=== PATIENT | female | born 1930 | race Caucasian/White ===

== ENCOUNTER 2017-08-22 00:46 | Inpatient (IN) | payer MEDICARE, OTHER ==
[~2017-08-22] VITALS: Ht 170.2 cm; Wt 70.0 kg
[~2017-08-22 00:46] MED LIST: ACTONEL35 MG PO; ASPIRIN EC81 MG PO; ASPIRIN LOW DOS81 M2 PO; ASPIRIN325 MG PO; ATELVIA PO; BISOPRL/HC5 MG/6.25 PO; BISOPRL/HCTZ PO; BISOPROL FUM5 MG PO; BP MED; CALCIUM 600 + M1 TAB PO; CEPHALEXIN500 MG OR; CEPHALEXIN500 MG PO; CLOPIDOGREL75 MG PO; CORDARONE/200 MG/TAB PO; CRESTOR10 MG OR; DIGITEK0.25 M1 PO; FEMARA2.5 MG OR; FLEET ENEMA RE; FOSAMAX PLUS PO; HYDROCHLOROT12.5 MG PO; K-DUR/KLOR-CON20 MEQ PO; KLOR-CON M2020 MEQ PO; LASIX40 MG PO; LORTAB 7.57.5 MG PO; LORTAB5 PO; MAG CITRATE PO; MEDDOSEPAK PO; MIRALAX3350 N1 PO; MUPIROCIN2 % EX; NORCO1 TA1 PO; ONDANSETRON4 MG PO; PLAVIX75 MG PO; ULTRAM50 MG OR; WARFARIN2.5 MG PO; [UNRECOGNIZED DRUG - OTHER] OR
--- NOTE | 2017-08-22 00:49 | NUR ---
PT. TO ROOM 10 VIA EMS RESTRAINED ON A BACK BOARD WITH C/O DAUGHTER THAT SHE FOUND HER MOM ON THE FLOOR IN A POOL OF VOMIT. PT. IS AWAKE AND ALERT BUT NON-VERBAL. MOUTH IS FULL OF VOMIT. LARGE BRUISE NOTED TO RIGHT SHOULDER RIGHT HIP AND RIGHT KNNE. PT. DAUGHTER STATES THE LAST TIME SHE CHECKED ON HER MOM WAS 1000 ON 08/21/17 EVEN THOUGH THEY LIVE IN THE SAME HOUSE. PT. WAS NOTED MOVING HER RIGHT FOOT. MD AT BEDSIDE.
[2017-08-22 01:07] LABS: HEMATOCRIT 53.1 % (37.0-47.0); HEMOGLOBIN 17.8 g/dl (12.0-16.0); IMMATURE GRANULOCYTES 0.5 % (0.0-1.0); MEAN CELL VOLUME 91.1 fL CALC (80.0-100.0); MEAN CORPUSCULAR HGB 30.5 pG CALC (26.0-32.0); MEAN CORPUSCULAR HGB CONC 33.5 g/L CALC (32.0-36.0); NEUT# 17.05 thou/uL (2.00-7.15); RED BLOOD COUNT 5.83 mill/uL (4.20-5.60); RED CELL DISTRI WIDTH 13.9 % (11.5-15.5)
[2017-08-22] MEDS ORDERED: K-DUR/KLOR-CON20 MEQ PO (01:17)
[2017-08-22] MEDS ORDERED: PLAVIX75 MG PO (01:19)
[2017-08-22 01:24] LABS: URINE BLOOD DIPSTICK TRACE-LYSED (NEGATIVE); URINE COLOR YELLOW; URINE GLUCOSE - DIPSTICK NEGATIVE (NEGATIVE); URINE KETONE 15 mg/dL (NEGATIVE); URINE LEUK ESTERASE NEGATIVE (NEGATIVE); URINE NITRITE - DIPSTICK NEGATIVE (Negative); URINE PH 5.5 (4.5-8.0); URINE PROTEIN - DIPSTICK TRACE mg/dL (NEG-TRACE); URINE SPECIFIC GRAVITY 1.025; URINE UROBILINOGEN - DIPSTICK 0.2 E.U./dL (0.2)
[2017-08-22 01:25] LABS: URINE CLARITY SL CLOUDY
[2017-08-22 01:26] LABS: URINE BILIRUBIN - DIPSTICK NEGATIVE (NEGATIVE)
--- NOTE | 2017-08-22 01:51 | NUR ---
ivf and iv cardizem given as per md order.
--- NOTE | 2017-08-22 02:26 | NUR ---
IN ROOM TO DISCUSS CLINICAL FINDINGS WITH PT. DAUGHTER, VERBALIZED UNDERSTANDING.
[2017-08-22 02:32] LABS: INTERNATIONAL NORMALIZED RATIO 1.1 RATIO (0.7-1.3); PROTHROMBIN TIME 12.7 SECONDS (9.0-12.5)
[2017-08-22 02:33] LABS: ALBUMIN 4.5 g/dL (3.2-5.0); ALKALINE PHOSPHATASE 106 u/l (38-126); ANION GAP 18 (6-22 (CALC)); BUN 24 mg/dL (8-23); BUN/CREATININE RATIO 29 (12-20 (CALC)); CARBON DIOXIDE 23 mmol/l (22-30); CHLORIDE 109 mmol/l (95-108); CREATININE 0.8 mg/dL (0.5-1.0); GFR > 60 ML/MIN (>=60 (CALC)); GFR FOR AFR.AMER. > 60 ML/MIN (>=60 (CALC)); GLUCOSE 167 mg/dL (82-115); POTASSIUM 3.8 mmol/l (3.5-5.1); SGOT/AST 73 u/l (9-36); SGPT/ALT 34 u/l (11-66); SODIUM 146 mmol/l (137-146); TOTAL PROTEIN 8.1 g/dL (6.3-8.2)
[2017-08-22 02:59] LABS: MYOGLOBIN 2109 ng/mL (0 - 62)
--- NOTE | 2017-08-22 03:19 | NUR ---
CHRISTINE CATH EMPTIED FOR 800 ML DK. GOOD URINE.
--- NOTE | 2017-08-22 03:25 | NUR ---
MOUTH CARE GIVEN.
--- NOTE | 2017-08-22 03:50 | NUR ---
Admission Note Report Given to: ANNAMARIA DAVIS Transported by: Wheelchair X Stretcher Transported with: X Nurse Transporter X Patent IV X O2 X Business Objects Report Developer
--- NOTE | 2017-08-22 03:52 | NUR ---
PT TRANSFERRED TO FLOOR VIA STRETCHER ACCOMPANIED BY JUSTIN GARCIA;PT POSITIONED IN BED WITH 3 PERSON LIFT;VS AND WT OBTAINED;PT AWAKE AND OPENS EYES TO VERBAL STIMULI BUT NON-VERBAL AT THIS TIME;MULTIPLE ABRASIONS AND BRUISES TO RIGHT HIP,KNEE,ELBOW, AND SHOULDER;PHOTOGRAPHS TAKEN AND PLACED IN CHART;DRIED EMESIS NOTED THROUGHOUT BODY AND HAIR,BED BATH AND ORAL CARE PROVIDED;RESPIRATIONS SHALLOW BUT EVEN ON OXYGEN @ 2L VIA NC;CLEAR LUNG SOUNDS NOTED;TELE MONITOR IN PLACE;#20G TO RIGHT WRIST INFUSING D5 LR @90ML/HR,SITE APPEARS HEALTHY AND FREE FROM EDEMA;PERRLA,LEFT EYE DROOP PRESENT;PT DOES NOT RESPOND TO VERBAL QUES; LIMB ALERT BAND PLACED ON LEFT ARM FOR HX OF L/MASTECTOMY;CHRISTINE CATHETER PATENT AND DRAINING YELLOW/COUDY URINE,LEG STRAP IN PLACE;ALL SAFETY PRECAUTIONS REINFORCED;CALL LIGHT WITHIN REACH;WILL CONTINUE TO MONITOR CLOSELY
[2017-08-22 04:00] VITALS: BP 134/74
--- NOTE | 2017-08-22 04:00 | NUR ---
PT. TAKEN TO MD FLOOR VIA STRETCHER.
--- NOTE | 2017-08-22 05:16 | NUR ---
DAUGHTER AT BEDSIDE;DAUGHTER REPORTS THAT YESTERDAY, 08/21/17, PT WAS ALERT,ORIENTED AND AMBULATING WITH EASE AND AFTER SEVERAL HOURS OF BEING LEFT HOME ALONE SHE WAS FOUND ON THE FLOOR;ALL HOME MEDICATIONS AND BELONGINGS SENT HOME AT THIS TIME;BASED ON THE NESS-VERGARA FACE PAIN SCALE PAIN LEVEL APPEARS TO BE A 6/10;DAUGHTER ALSO REQUESTS PT BE MEDICATED FOR PAIN;PT MEDICATED WITH 2MG OF MORPHINE IVP;WILL CONTINUE TO MONITOR
[2017-08-22 08:20] VITALS: BP 130/72
--- NOTE | 2017-08-22 08:20 | NUR ---
ASSESSMENT IS COMPLETED: PT IS AWAKE AND NOT VERBALIZING WELL. IV SITE IS FREE FROM REDNESS OR EDEMA. ENCOURAGING PT TO EAT BREAKFAST. PT HAS A TELE MONITOR IN PLACE. FAMILY IN THE ROOM. CONTINUE TO OBSERVE AND MONITOR.
[2017-08-22 11:17] VITALS: BP 132/57
--- NOTE | 2017-08-22 12:00 | NUR ---
IV SITE IS FREE FROM REDNESS OR EDEMA. CHRISTINE DRAINING GOOD URINE., NO DISTRESS NOTED. CONITNUE TO OSBERVE AND MONITOR.,
[2017-08-22 15:35] VITALS: BP 146/83
--- NOTE | 2017-08-22 16:00 | NUR ---
PT IS RESTING IN BED WITH NO DISTRESS NOTED. IV SITE IS FREE FROM REDNESS OR EDEMA. FAMILY HAS BEEN IN AND OUT.
[2017-08-22 19:15] VITALS: BP 110/80
--- NOTE | 2017-08-22 19:34 | NUR ---
HOSPICE HAS BEEN CALLED AND WILL COME AND ASSESS PT.
--- NOTE | 2017-08-22 20:00 | NUR ---
PT RESTING IN BED WITH FAMILY AT BEDSIDE;PT AWAKE BUT NON-VERBAL;UNABLE TO FOLLOW ANY COMMANDES AT THIS TIME;MORPHINE 2MG IVP ADMINISTERED PER FAMILY REQUEST;RESPIRATIONS EVEN BUT SHALLOW WITH O2 ON @ 2L;CHRISTINE CATHETER PATENT DRAINING GOOD/CLOUDY URINE,LEG STRAP IN PLACE;#20G TO RIGHT WRIST INFUSING D5 LR @ 90ML/HR,SITE APPEARS HEALTHY;MULTIPLE ABRASIONS AND BRUISES TO RIGHT SIDE;MINIMAL ORAL SECREATIONS NOTED;PT RE-POSITIONED FOR COMFORT;SAFETY PRECAUTIONS REINFORCED WITH PT AND FAMILY;PILLOWS AND BLANKETS PROVIDED FOR ITALOSHAYLAAUGUSTAKYARA WHO WILL BE SPENDING THE NIGHT AT PTS SIDE;FALL PRECAUTIONS IN PLACE;WILL CONTINUE TO MONITOR
--- NOTE | 2017-08-22 23:59 | NUR ---
PT APPEARS TO BE SLEEPING IN SEMI FOWLERS POSITION;NO S/S OF DISTRESS NOTED;RESPIRATIONS SHALLOW BUT EVEN ON OXYGEN @ 2L;IV FLUIDS INFUSING WELL TO RIGHT WRIST;ASSESSMENT REMAINS UNCHANGED;FALL PRECAUTIONS IN PLACE WITH BED IN THE LOWEST POSITION;WILL CONTINUE TO MONITOR
[2017-08-23] VITALS (7 sets, daily range): BP systolic 104–156; BP diastolic 67–84
--- NOTE | 2017-08-23 03:50 | NUR ---
PT DAUGHTER CALLED FOR AN UPDATE ON CONDITION
--- NOTE | 2017-08-23 04:30 | NUR ---
PT SLEEPING IN SEMI FOWLERS POSITION;VS OBTAINED;RESPIRATIONS EVEN AND UNLABORED,SHALLOW ON 02 @ 2L VIA NC;PT NON-VERBAL,AWAKENS TO TOUCH;PO FLUIDS ENCOURAGED;IV FLUIDS INFUSING WELL TO RIGHT WRIST;CHRISTINE CATHETER PATENT,EMPTIED OF 300CC OF GOOD/CLEAR URINE;FALL PRECAUTIONS IN PLACE;WILL CONTINUE TO MONITOR CLOSELY
--- NOTE | 2017-08-23 05:35 | NUR ---
PT RESTING IN BED WITH EYES OPENED GRABBING AT RIGHT SHOULDER;PT MEDICATED WITH PRN MORPHINE 2MG IVP FOR COMFORT;WILL CONTINUE TO MONITOR FOR EFFECT
--- NOTE | 2017-08-23 07:50 | NUR ---
PT IS AWAKE HAVING GARBLED SPEECH. IV SITE IS FREE FROM REDNESS OR EDEMA. ASSESSMENT IS COMPLETED: CONTINUE TO OBSERVE AND MONITOR.
--- NOTE | 2017-08-23 08:24 | NUR ---
SPOKE WITH KULDEEP RN AT HOSPICE WILL SEND A NURSE OUT TO SEE HER TODAY,
--- NOTE | 2017-08-23 08:57 | NUR ---
Received report from Gabriele Giron RN. Pt. assessment completed. Pt. asleep in semi-fowlers position when I entered the room. Pt. is non-verbal, responsive to voice/touch. No S/S of distress. Pupils reactive to light 3mm. Facial structure is symmetrical. Oral mucous membranes are dry with some sediment noted towards back of mouth - swabbed mouth with toothette and gave water to drink. Respirations are even/unlabored, pt. is on O2/NC 2L. Heart rhythm/sounds irregular/abnormal I/R to dx of AFIB, tele device was DC'd per Physician orders. Pt. exhibits fair strength in upper extremities, weakness in lower extremities. Abdomen is distended/soft with hypoactive bowel sounds. Pt. receiving IV fluids in right wrist, IV site free from edema/redness. Skin is acyanotic, warm/dry, poor skin turgor/tenting. No edema noted. Bruising/abrasions appear to be healing well, no S/S of infection. Emmanuel catheter in place and draining appropriately to BSDB. Bed is in lowest position, side rails up, wheels locked, call light within reach.
--- NOTE | 2017-08-23 10:30 | NUR ---
KULDEEP FROM HOSPICE CALLED AND HAS BEEN TRYING TO GET IN TOUCH WITH PT'S DAUGHTER.. DAUGHTER CALLED AND INFORMED OF HOSPICE AND GAVE PHONE NUMBER , THEY CALLED BACK AT [phone] AND HAS AN APPOINTMENT FOR THE DAUGHTER AND HOSPICE NURSE TO MEET INBETWEEN [phone] AND 1400.
--- NOTE | 2017-08-23 12:00 | NUR ---
PT IS TRYING TO FEED HERSELF. CLEANED HER AND THEN ASSISTED THE REST OF THE LUNCH. IV SITE IS FREE FROM REDNESS OR EDEMA.
--- NOTE | 2017-08-23 12:00 | NUR ---
PT HAS BEEN RESTING IN BED WITH NO DISTRESS NOTED. CONTINUE TO OSBERVE AND MONITOR.
--- NOTE | 2017-08-23 13:53 | NUR ---
SPOKE WITH GRANDSON AND INFORMED OF THE PLAN FOR HOSPICE NURSE AND HIS MOTHER TO SPEAK THIS AFTERNOON VERBALIZED UNDERSTANDING,
--- NOTE | 2017-08-23 14:15 | NUR ---
HOSPICE IN TO SPEAK WITH FAMILY AT THIS TIME
--- NOTE | 2017-08-23 16:00 | NUR ---
PT IS RESTING IN BED FAMILY HAS BEEN IN THE ROOM. NO DISTRESS NTOED. CONITNUE TO OBSERVE AND MONITOR.
--- NOTE | 2017-08-24 02:38 | NUR ---
PATIENT GIVEN COMPLETE BED BATH AND LINENS WERE CHANGED. PATIENT WITH EXPRESSIVE APHASIA AND GARBLED SPEECH. ATTEMPTS TO SPEAK BUT MOST OF THE TIME HER SPEECH IS GARBLED. PATIENT OFFERED PO FLUIDS AND WAS ABLE TO TAKE WITH STRAW-TOLERATED WELL. CHRISTINE CATH PATENT AND DRAINING GOOD URINE. CHRISTINE CATH CARE DONE. PATIENT MEDICATED WITH ATIVAN 1MG FOR PATIENT COMFORT. ORAL HYGEINE GIVEN. CALL LIGHT IN REACH. WILL CONT TO MONITOR.
[2017-08-24 04:15] VITALS: BP 112/70
--- NOTE | 2017-08-24 06:30 | NUR ---
APPEARS SLEEPING AT THIS TIME WITH EYES CLOSED. IVF PATENT AND INFUSING AT 90CC/HR. CHRISTINE PATENT AND DRAINING GOOD URINE. CALL LIGHT IN REACH. WILL CONT TO MONITOR.
--- NOTE | 2017-08-24 07:00 | NUR ---
RECEIVED BEDSIDE REPORT FROM FLORENCIO ANDERSON. RESTING IN HIGH FOWLERS WITH EYES CLOSED, AWAKENS EASILY. RESPS EVEN AND UNLABORED ON ROOM AIR. #20 LW INFUSING WITHOUT DIFFICULTY, SITE APPEARS HEALTHY. CHRISTINE PATENT DRAINING CLEAR YELLOW URINE TO GRAVITY. NO APPARENT DISTRESS NOTED AT THIS TIME. PLAN OF CARE DISCUSSED. SAFETY PRECAUTIONS REINFORCED. BED IN LOWEST POSITION WITH WHEELS LOCKED. CALL LIGHT WIHTIN REACH. WILL CONTINUE TO MONITOR.
[2017-08-24 08:20] VITALS: BP 120/75
--- NOTE | 2017-08-24 12:00 | NUR ---
RESTING IN SEMI FOWLERS WITH EYES CLOSED, EYES OPEN WITH VERBAL STIMULI. FAMILY AT BEDSIDE. RESPS EVEN AND UNLABORED ON ROOM. UNABLE TO ENCOURAGE PT OT AWAKEN FOR LUNCH. WILL CONTINUE TO MONITOR. FAMILY ENCOURAGED TO CALL FOR ANY NEEDS.
[2017-08-24 16:00] VITALS: BP 137/86
--- NOTE | 2017-08-24 16:00 | NUR ---
RESTING IN HIGH FOWLERS WITH EYES OPEN. PT ACKNOWLEDGED MY WAVE WITH A WAVE BACK AND A SMILE. NO APPARENT DISTRESS NOTED. CALL LIGHT WITHIN REACH. WILL CONTINUE TO MONITOR.
--- NOTE | 2017-08-24 17:39 | NUR ---
AWAKE AND FEEDING SELF, ATTEMPTING TO TALK WITH GARBLED SPEECH. CHRISTINE PATENT DRAINING GOOD COLORED URINE. CALL LIGHT WITHON REACH. WILL CONTINUE TO MONITOR.
[2017-08-24 19:05] VITALS: BP 144/76
--- NOTE | 2017-08-24 19:30 | NUR ---
PATIENT SITTING UP IN BED-AWAKE ALERT WITH GARBLED SPEECH. CHRISTINE PATENT AND DRAINING DARK GOOD URINE. HAND GRASPS LEFT GREATER THAN RIGHT. CALL LIGHT IN REACH. WILL CONT TO MONITOR.
--- NOTE | 2017-08-24 20:00 | NUR ---
PATIENT RESTING IN BED-FAMILY AT BEDSIDE VISITING. PATIENT DAUGHTER WITH CONCERNS REGUARDING WHY PATIENT IVF WERE NO LONGER IN PLACE AND WHY PATIENT HAD "TEMP"- DAUGHTER WAS EDUCATED THAT IVF HAD BEEN DISCONTINUED TODAY BY MD AND THAT PATIENT LAST TEMP WAS 99.4-WHICH WAS A VERY SLIGHT ELEVATION. DAUGHTER STATES THAT HER MOTHER MUST HAVE IVF RESTARTED. CALL PLACED TO DR. JONES AND MESSAGE WAS LEFT TO CALL BACK REGUARDING CONT OF IVF. WILL CONT TO MONITOR.
--- NOTE | 2017-08-24 21:00 | NUR ---
SPOKE TO DR. JONES REGUARDING PATIENT DAUGHTER INSISTANCE OF CONT IVF AT THIS TIME. DAUGHTER SPOKE TO DR. JONES ON THE PHONE. CONT TO WANT IVF FOR HER MOTHER AT THIS TIME. WILL CONT TO MONITOR. PATIENT MOVED TO ROOM 260-TV NOT WORKING PROPERLY IN ROOM 270.
--- NOTE | 2017-08-24 22:10 | NUR ---
PATIENT GIVEN COMPLETE BED BATH, CHRISTINE CATH CARE AND LINEN CHANGED. PATIENT TURNED AND REPOSITIONED-APPEARS TO BE IN PAIN WITH FACIAL EXPRESSIONS AND MOANING. PATIENT MEDICATED WITH MORPHINE 2MG IVP. IVF D5LR HUNG AND INFUSING AT 90CC/HR. PATIENT OFFERED PO FLUIDS THROUGH STRAW BUT PATIENT DECLINES AT THIS TIME. CALL LIGHT IN REACH. WILL CONT TO MONITOR.
[2017-08-24 23:40] VITALS: BP 141/81
--- NOTE | 2017-08-25 00:27 | NUR ---
APPEARS SLEEPING AT THIS TIME WITH EYES CLOSED AND HOB ELEVATED. DAUGHTER REMAINS AT BEDSIDE. IVF PATENT AND INFUSING AT 90CC/HR. SITE APPEARS HEALTHY AT THIS TIME. CHRISTINE PATENT AND DRAINING GOOD URINE. CALL LIGHT IN REACH. WILL CONT TO MONITOR.
[2017-08-25 04:15] VITALS: BP 102/55
--- NOTE | 2017-08-25 05:36 | NUR ---
PATIENT APPEARS SLEEPING WITH EYES CLOSED. IVF PATENT AND INFUSING AT 90CC/HR ORDERED. CALL LIGHT IN REACH. WILL CONT TO MONITOR.
--- NOTE | 2017-08-25 07:00 | NUR ---
RECEIVED BEDSIDE REPORT FROM AURY ANDERSON. RESTING IN HIGH FOWLERS WITH EYES CLOSED, AWAKENS EASILY. RESPS EVEN AND UNLABORED ON ROOM AIR. CHRISTINE PATENT DRAINING GOOD URINE TO GRAVITY. #20 RW INFUSING WITHOUT DIFFICULTY, SITE APPEARS HEALTHY. DAUGHTER AT BEDSIDE SLEEPING IN BEDSIDE COT. DENIES PAIN OR DISCOMFORT. PLAN OF CARE DISCUSSED. SAFETY PRECAUTIONS REINFORCED. BED IN LOWEST POSITION WITH WHEELS LOCKED. CALL LIGHT WITHIN REACH. WILL CONTINUE TO MONITOR.
[2017-08-25 07:30] VITALS: BP 137/89
--- NOTE | 2017-08-25 11:00 | NUR ---
DR JONES IN WITH PT, NEW ORDERS RECEIVED.
--- NOTE | 2017-08-25 12:03 | NUR ---
SITTING ON EDGE OF BED FEEDING LUNCH SELF LUNCH. RESPS EVEN AND UNLABORED ON ROOM AIR. NANCI PATENT DRAINING GOOD COLORED URINE. #20 RW INFUSING WITHOUT DIFFICULTY, SITE APPEARS HEALTHY. CALL LIGHT WITHIN REACH. WILL CONTINUE TO MONITOR.
--- NOTE | 2017-08-25 13:34 | NUR ---
ASSISTED TO BEDSIDE CHAIR WITH MAX ASSIST. TOLERATED ACTIVITY WELL, BED ALARM ON FOR SAFETY. CALL LIGHT WITHIN REACH.
[2017-08-25 16:28] VITALS: BP 151/81
--- NOTE | 2017-08-25 17:03 | NUR ---
RESTING IN BED WITH EYES CLOSED, AWAKENS EASILY. DAUGHTER AT BEDSIDE. RESPS EVEN AND UNLABORED ON ROOM AIR. CHRISTINE PATENT, DRAINING GOOD URINE TO GRAVITY. #20 RW INFUSING WITHOUT DIFFICULTY. NO APPARENT DISTRESS NOTED AT THIS TIME. CALL LIGHT WITHIN REACH. ENCOURAGED PT AND DAUGHTER TO CALL FOR ANY NEEDS.
--- NOTE | 2017-08-25 19:15 | NUR ---
PT RESTING IN BED WITH FAMILY AT BEDSIDE. PT ALERT, AWAKE, SPEECH GARBLED. RESP EVEN AND UNLABORED. NO DISTRESS NOTED. LUNGS CLEAR BILAT. ABD DISTENDED,SOFT. ACTIVE BOWEL SOUNDS. CHRISTINE PATENT, DRAINING GOOD URINE. PEDAL PULSES PALPATED BILAT. PT ASSISTED TO BSC, BOWEL MOVEMENT. CHRISTINE CARE GIVEN. BED CHANGED AT THIS TIME. PT ASSISTED BACK TO BED. PT REPOSITIONED FOR COMFORT. IV RW PATENT. HAND GRASP WEAK BILAT. BED ALARM IN PLACE FOR SAFETY. BED IN LOWEST POSITION WITH WHEELS LOCKED. FREQUENT ROUNDS MADE. CALL LIGHT WITHIN REACH.
[2017-08-25 20:06] VITALS: BP 125/74
--- NOTE | 2017-08-25 22:14 | NUR ---
PT MEDICATED WITH MORPHINE 2MG FOR DISCOMFORT. FACE PAIN SCALE 5. RESP EVEN AND UNLABORED.
--- NOTE | 2017-08-26 00:07 | NUR ---
PT WOKE FOR VS. PT AROUSABLE TO SPEECH. RESP EVEN AND UNLABORED. NO DISTRESS NOTED. IV PATENT. PT REPOSITIONED FOR COMFORT. CALL LIGHT WITHIN REACH.
--- NOTE | 2017-08-26 01:04 | NUR ---
PT RESTLESS & AGITATED, UNABLE TO SLEEP. MEDICATED WITH ATIVAN 1MG. RESP EVEN AND UNLABORED. WILL CONTINUE TO MONITOR CLOSELY. FREQUENT ROUNDS MADE. CALL LIGHT WITHIN REACH.
[2017-08-26 01:47] VITALS: BP 111/76
--- NOTE | 2017-08-26 04:00 | NUR ---
PT APPEARS TO BE SLEEPING WITH EYES CLOSED. RESP EVEN AND UNLABORED. NO DISTRESS NOTED. CHRISTINE PATENT. IV PATENT. CALL LIGHT WITHIN REACH.
[2017-08-26 04:20] VITALS: BP 111/71
--- NOTE | 2017-08-26 07:00 | NUR ---
SHIFT CHANGE REPORT FROM TRAMAINE, PT SLEEPING BUT AROUSES TO TACTILE STIMULI, SPEECH GARBLED AND WORDS UNCLEAR/NONSENSICAL BUT FOLLOWS COMMANDS, DENIES PAIN, CHRISTINE IN PLACE DRAINING GOOD URINE, CALL LOVE IN REACH.
--- NOTE | 2017-08-26 07:15 | NUR ---
REPORT GIVEN TO JUSTIN CHAPMAN. PT APPEARS TO BE SLEEPING. RESP EVEN AND UNLABORED. NO DISTRESS NOTED. IV PATENT. CALL LIGHT WITHIN REACH.
[2017-08-26 09:13] VITALS: BP 131/63
--- NOTE | 2017-08-26 09:45 | NUR ---
DR JONES HERE TO ROUND WITH PT, NEW ORDERS WRITTEN.
[2017-08-26 10:35] VITALS: BP 142/101
--- NOTE | 2017-08-26 10:48 | NUR ---
GRAND-DAUGHTER NIMO IS VISITING AT THIS TIME, REPORTING PT IS C/O EPIGASTRIC AND NECK PAIN AT THIS TIME, ON OBSERVATION PT DOES NOT APPEAR TO BE IN DISTRESS, BREATHING SHALLOW WHICH HAS NOT CHANGED SINCE AM ASSESSMENT. PAIN MED ADMINISTERED, WILL CONTINUE TO MONITOR, CALL LOVE IN REACH.
[2017-08-26 16:00] VITALS: BP 121/72
--- NOTE | 2017-08-26 16:42 | NUR ---
WALLACE (PT'S DAUGHTER IS HERE POINTING OUT LARGE SWOLEN AREA TO R. SHOULDER AND STATING PT RIBS MAY BE FRACTURED FROM RECENT FALL. DAUGHTER IS STANDING BY BEDSIDE AT THIS TIME AND FALLING ALSEEP WHILE CONVERSING WITH ME. AT NURSES STATION NOW REPORTING PT IS REQUESTING TO SEE NURSE AT THIS TIME, WILL ADDRESS NEEDS IN TIMELY MANNER.
--- NOTE | 2017-08-26 18:06 | NUR ---
ASSESSED PT @ 1642, NO IV CATHETER IN PLACE, NOT FOUND IN BED EITHER, NO BLOOD OBSERVED, ON INVESTIGATION FROM [facility] IT WAS REPORTED CATHETER FELL OUT DURING TRANSFER FROM BED TO COMMODE.
[2017-08-26 19:00] VITALS: BP 134/56
--- NOTE | 2017-08-26 19:35 | NUR ---
PATIENT RESTING IN BED AT THIS TIME WITH HOB ELEVATED AND VISITING WITH FAMILY. SPEECH REMAINS GARBLED AT THIS TIME. PATIENT IS ALERT WITH CHRISTINE DRAINING GOOD URINE. PATIENT WITH NO IV ACCESS AT THIS TIME-WILL RESTART SHORTLY. CALL LIGHT IN REACH. WILL CONT TO MONITOR.
--- NOTE | 2017-08-26 20:30 | NUR ---
NEW IV SITE STARTED TO THE RIGHT HAND-#22 GAUGE WITH GOOD RETURN. IVF D5LR PATENT AND INFUSING AT 90CC/HR. CALL LIGHT IN REACH. WILL CONT TO MONITOR.
--- NOTE | 2017-08-26 23:22 | NUR ---
PATIENT IS RESTLESS AND ATTEMPTING TO PULL ON THE CHRISTINE CATH THAT IS IN PLACE AND ATTEMPTING TO GET OOB. PATIENT REMAINS WITH EXPRESSIVE APHASIA. MEDICATED WITH ATIVAN 1MG IVP ORDERED FOR ANXIETY. CHRISTINE IS DRAINING GOOD URINE. IV SITE TO RIGHT HAND REMAINS INTACT WITH IVF D5LR INFUSING AT 90CC/HR. BED ALARM IN PLACE FOR PATIENT SAFETY. CALL LIGHT IN REACH. WILL CONT TO MONITOR.
--- NOTE | 2017-08-27 00:16 | NUR ---
PATIENT APPEARS SLEEPING AT THIS TIME. O2 VIA NASAL CANNULA IN PLACE AT 2LPM. IVF PATENT AND INFUSING AT 90CC/HR. CHRISTINE PATENT AND DRAINING GOOD URINE. CALL LIGHT IN REACH. WILL CONT TO MONITOR.
[2017-08-27 04:36] VITALS: BP 132/64
--- NOTE | 2017-08-27 05:34 | NUR ---
PATIENT RESTING IN BED APPEARS SLEEPING AT THIS TIME WITH O2 VIA NASAL CANNULA IN PLACE. CHRISTINE PATENT AND DRIANING GOOD URINE. SAFETY PRECAUTIONS IN PLACE. BED ALARM IN PLACE FOR PATIENT SAFETY. CALL LIGHT IN REACH. WILL CONT TO MONITOR.
--- NOTE | 2017-08-27 07:27 | NUR ---
REPORT RECEIVED FROM JUSTIN MATIAS. PT SITTING UPRIGHT IN BED. SPEECH GARBLED MOSTLY, BUT A FEW SENTENCES CLEAR AND APPROPRIATE. FALL PRECAUTIONS REINFORCED. REPORTING OF CONCERNS ENCOURAGED. PLAN OF CARE DISCUSSED. PT DENIES PAIN. CALL LIGHT REVIEWED AND IN REACH. PT STATES UNDERSTANDING. BED ALARM SET FOR SAFETY.
[2017-08-27 07:29] VITALS: BP 148/92
--- NOTE | 2017-08-27 10:11 | NUR ---
DR. JONES IN TO SEE PT AT THIS TIME.
--- NOTE | 2017-08-27 11:00 | NUR ---
PT AMBULATED TO RESTROOM WITH 1 STAFF ASSIST. UNSTEADY GAIT. ENVIRONMENTALLY DEPENDENT. PT TOLERATED ACTIVITY WELL.
--- NOTE | 2017-08-27 13:01 | NUR ---
NANCI Saunders/Iban'Chip AT THIS TIME.
[2017-08-27 14:08] LABS: HEMATOCRIT 41.1 % (37.0-47.0); HEMOGLOBIN 13.1 g/dl (12.0-16.0); IMMATURE GRANULOCYTES 0.5 % (0.0-1.0); MEAN CELL VOLUME 94.9 fL CALC (80.0-100.0); MEAN CORPUSCULAR HGB 30.3 pG CALC (26.0-32.0); MEAN CORPUSCULAR HGB CONC 31.9 g/L CALC (32.0-36.0); NEUT# 9.83 thou/uL (2.00-7.15); RED BLOOD COUNT 4.33 mill/uL (4.20-5.60); RED CELL DISTRI WIDTH 13.6 % (11.5-15.5)
[2017-08-27 14:22] LABS: ANION GAP 12 (6-22 (CALC)); BUN 15 mg/dL (8-23); BUN/CREATININE RATIO 22 (12-20 (CALC)); CALCIUM 8.8 mg/dL (8.4-10.2); CARBON DIOXIDE 26 mmol/l (22-30); CHLORIDE 107 mmol/l (95-108); CPK 287 u/l (30-165); CREATININE 0.7 mg/dL (0.5-1.0); GFR > 60 ML/MIN (>=60 (CALC)); GFR FOR AFR.AMER. > 60 ML/MIN (>=60 (CALC)); GLUCOSE 150 mg/dL (82-115); MAGNESIUM 2.1 mg/dL (1.6-2.3); POTASSIUM 4.3 mmol/l (3.5-5.1); SODIUM 140 mmol/l (137-146)
--- NOTE | 2017-08-27 16:02 | NUR ---
PT SITTING UPRIGHT IN BED. DAUGHTER AT BEDSIDE. DAUGHTER UPDATED ON PLAN OF CARE. QUESTIONS REGARDING CARE AND CONDITION ANSWERED AT THIS TIME. DAUGHTER STATES UNDERSTANDING.
[2017-08-27 16:32] VITALS: BP 108/84
--- NOTE | 2017-08-27 19:15 | NUR ---
PATIENT FOUND TRYING TO GET BACK INTO THE BED FROM THE BSC-DAUGHTER AT BEDSIDE. PATIENT FOUND TO BE AGITATED AND AGGRESSIVE-SPEECH REMAINS GARBLED. ASSISTED PATIENT BACK TO THE BED AND O2 APPLIED. PATIENT WITH IV SITE TO RIGHT HAND INTACT AND APPEARS HEALTHY AT THIS TIME, IVF D51/2NS PATENT AND INFUSING AT 90CC/HR ORDERED. PATIENT IS VERY UNSTEADY ON HER FEET. SOB WITH EXHERSION. 192-PATIENT AGAIN TRYING TO GET OOB-WANTS TO GO HOME. ATTEMPTED TO EXPLAIN TO THE PATIENT THE NEED FOR CONT NURSING CARE SECONDARY TO RECENT CVA. PATIENT IS NOT RECEPTIVE TO EXPLANATION. PATIENT ASSISTED TO THE BSC AND THEN BACK TO THE BED. PATIENT CONT TO BE AGITATED AND ATTEMPTING TO PULL AT TUBINGS. PATIENT MEDICATED WITH ATIVAN 1MG IVP FOR AGITATION. PATIENT WITH LARGE MASS TO THE RIGHT UPPER-MID BACK-OPEN TO AIR, SLIGHTLY RED AND SWOLLEN. PATIENT FOR U/S IN AM OF AFFECTED KERRY. BED ALARM IN PLACE FOR PATIENT SAFETY. CALL LIGHT IN REACH. WILL CONT TO MONITOR.
[2017-08-27 19:40] VITALS: BP 106/85
--- NOTE | 2017-08-27 21:25 | NUR ---
PATIENT APPEARS SLEEPING AFTER RECIEVING ATIVAN EARLIER. DAUGHTER AT BEDSIDE. IVF PATENT AND INFUSING AT 90CC/HR. CALL LIGHT IN REACH.WILL CONT TO MONITOR
--- NOTE | 2017-08-27 23:45 | NUR ---
PATIENT APPEARS SLEEPING AT THIS TIME WITH O2 VIA NASAL CANNULA WITH O2 SAT OF 96%. DAUGHTER SLEEPING IN CHAIR WITH HEAD ON BEDSIDE TABLE. COT PROVIDED FOR DAUGHTER IN THE ROOM. PATIENT WITH IVF PATENT AND INFUSING AT 90CC/HR. BED ALARM IN PLACE FOR PATIENT SAFETY. CALL LIGHT IN REACH. WILL CONT TO MONITOR.
[2017-08-28 03:13] VITALS: BP 139/87
--- NOTE | 2017-08-28 03:49 | NUR ---
PATIENT RESTING IN BED AND MOANING-SPEECH REMAINS GARBLED. IV SITE LEAKING AND D/YASH. NEW IV SITE TO RIGHT WRIST AREA STARTED WITH #24 GAUGE WITH GOOD BLOOD RETURN. PATIENT MEDICATED WITH MORPHINE 2MG IVP FOR PAIN. IVF D5LR PATENT AND INFUSING AT 90CC/HR. O2 VIA NASAL CANNULA IN PLACE. PATIENT REMAINS TACHYPENIC AND SHALLOW. HOB ELEVATED FOR COMFORT. RIGHT ARM AND HAND WITH SOME SWELLING NOTED. BED ALARM IN PLACE FOR PATIENT SAFETY. CALL LIGHT IN REACH. WILL CONT TO MONITOR.
--- NOTE | 2017-08-28 07:00 | NUR ---
RECEIVED BEDSIDE REPORT FROM FLORENCIO ANDERSON. RESTING IN SEMI FOWLERS WITH EYES OPEN. RESPS EVEN AND UNLABORED ON O2 VIA NC. #24 RFA INFUSING WITHOUT DIFFICULTY, SITE APPEARS HEALTHY. RIGHT ARM WITH SOME SWELLING NOTED. SPEECH GARBLED, NO APPARENT DISTRESS NOTED. DAUGHTER AT BEDSIDE. PLAN OF CARE DISCUSSED. SAFETY PRECAUTIONS REINFORCED. BED IN LOWEST POSITION WITH WHEELS LOCKED. BED ALARM ON FOR SAFETY. CALL LIGHT WITHIN REACH. WILL CONTINUE TO MONITOR.
[2017-08-28 07:43] VITALS: BP 128/82
--- NOTE | 2017-08-28 10:15 | NUR ---
TO ULTRASOUND IN STABLE CONDITION VIA WHEELCHAIR ACCOMPANIED BY VOLUNTEER.
--- NOTE | 2017-08-28 10:45 | NUR ---
FROM ULTRASOUND VIA WHEELCHAIR ACCOMPANIED BY VOLUNTEER. ASSISTED TO BEDSIDE CHAIR WITH MAX ASSIST. CALL LIGHT WITHIN REACH. WILL CONTINUE TO MONITOR.
--- NOTE | 2017-08-28 16:00 | NUR ---
RESTING IN BED WITH EYES CLOSED, AWAKENS EASILY. RESPS EVEN AND UNLABORED ON O2 VIA NC. VOICES NO NEEDS AT THIS TIME. CALL LIGHT WITHIN REACH. ENCOURAGED PT TO CALL FOR ANY NEEDS.
[2017-08-28 17:06] VITALS: BP 140/82
--- NOTE | 2017-08-28 19:15 | NUR ---
PT RESTING IN HIGH FOWLERS POSITION EATING HER DINNER;GARBLED SPEECH NOTED;RESPIRATIONS EVEN AND UNLABORED ON 02 @ 2L VIA NC;POC DISCUSSED;FALL PRECAUTIONS IN PLACE WITH BED IN THE LOWEST POSITION;CALL LIGHT IN REACH;WILL CONTINUE TO MONITOR
[2017-08-28 19:30] VITALS: BP 129/81
--- NOTE | 2017-08-28 21:40 | NUR ---
PT APPEARS TO BE SLEEPING IN SEMI FOWLERS POSITION;WOKE PT TO COMPLETE ASSESSMENT AND ADMINISTER SCHEDULED MEDICATION;PT WAKES TO VERBAL STIMULI;GARBLED SPEECH NOTED;#24G TO RIGHT HAND INFUSING NS @ 80ML/HR WELL,SITE APPEARS TO BE HEALTHY;RESPIRATIONS EVEN AND UNLABORED,SHALLOW ON 02 @2L VIA NC;MULTIPLE BRUISES AND ABRASIONS NOTED THROUGHOUT BODY;PT VOICES NO COMPLAINTS OR CONCERNS OF PAIN;PT EDUCATED TO CALL FOR ASSISTANCE IF NEEDED;COMMODE AT BEDSIDE;BED IN LOWEST POSITION WITH CALL LIGHT IN REACH;WILL CONTINUE TO MONITOR
[2017-08-28 23:35] VITALS: BP 160/106
[2017-08-29 00:22] VITALS: BP 138/77
--- NOTE | 2017-08-29 00:40 | NUR ---
PT RESTING IN BED;IV FLUIDS INFUSING WELL TO RIGHT HAND;PT NOTED TO HAVE EXPRESSIVE APHASIA,BUT DENIES ANY PAIN OR DISCOMFORTS;RESPIRATIONS EVEN AND UNLABORED ON 02 @ 2L VIA NC;FALL PRECAUTIONS IN PLACE WITH CALL LIGHT IN REACH;WILL CONTINUE TO MONITOR
--- NOTE | 2017-08-29 04:00 | NUR ---
PT RESTING IN SEMI FOWLERS POSITION WITH LAB AT BEDSIDE;PT RESPIRATIONS EVEN AND UNLABORED WITH SOME EXERTIONAL SOB AFTER AMBULATION;RT CALLED FOR PRN BREATHING TREATMENT;OXYGEN ON AT 2L VIA NC;IV FLUIDS INFUSING WELL TO RIGHT HAND;PT STILL SHOWING EXPRESSIVE APHASIA;VOICES NO COMPLAINTS OR NEEDS;BED ALARM ON FOR PT SAFETY;FALL PRECAUTIONS IN PLACE WITH CALL LIGHT IN REACH;WILL CONTINUE TO MONITOR
[2017-08-29 04:30] VITALS: BP 136/84
[2017-08-29 05:10] LABS: URINE BILIRUBIN - DIPSTICK NEGATIVE (NEGATIVE); URINE BLOOD DIPSTICK SMALL (NEGATIVE); URINE COLOR YELLOW; URINE GLUCOSE - DIPSTICK NEGATIVE (NEGATIVE); URINE KETONE NEGATIVE (NEGATIVE); URINE PH 5.5 (4.5-8.0); URINE PROTEIN - DIPSTICK TRACE mg/dL (NEG-TRACE); URINE SPECIFIC GRAVITY >=1.030; URINE UROBILINOGEN - DIPSTICK 0.2 E.U./dL (0.2)
[2017-08-29 05:11] LABS: URINE CLARITY SL CLOUDY; URINE LEUK ESTERASE MODERATE (NEGATIVE); URINE NITRITE - DIPSTICK POSITIVE (Negative)
[2017-08-29 05:16] LABS: HEMATOCRIT 40.4 % (37.0-47.0); IMMATURE GRANULOCYTES 0.8 % (0.0-1.0); MEAN CELL VOLUME 95.5 fL CALC (80.0-100.0); MEAN CORPUSCULAR HGB 30.7 pG CALC (26.0-32.0); MEAN CORPUSCULAR HGB CONC 32.2 g/L CALC (32.0-36.0); NEUT# 7.74 thou/uL (2.00-7.15); RED BLOOD COUNT 4.23 mill/uL (4.20-5.60); RED CELL DISTRI WIDTH 13.6 % (11.5-15.5)
[2017-08-29 05:20] LABS: URINE BACTERIA MANY hpf; URINE MUCUS FEW hpf (NONE-FEW); URINE SQUAMOUS EPITHELIAL CELL FEW EPI/hpf (0-FEW); URINE WBC >100 WBC/hpf (0-5)
--- NOTE | 2017-08-29 05:40 | NUR ---
PT IV SITE FOUND INFILTRATED,SITE REMOVED WITH CATHETER INTACT;NEW SITE TO BE STARTED
--- NOTE | 2017-08-29 06:15 | NUR ---
NEW #24G STARTED TO RT UPPER ARM FLUSHED AND PATENT,PT TOLERATED WELL
[2017-08-29 06:35] LABS: ANION GAP 15 (6-22 (CALC)); BUN 16 mg/dL (8-23); BUN/CREATININE RATIO 23 (12-20 (CALC)); CALCIUM 9.3 mg/dL (8.4-10.2); CARBON DIOXIDE 24 mmol/l (22-30); CHLORIDE 109 mmol/l (95-108); CREATININE 0.7 mg/dL (0.5-1.0); GFR > 60 ML/MIN (>=60 (CALC)); GFR FOR AFR.AMER. > 60 ML/MIN (>=60 (CALC)); GLUCOSE 106 mg/dL (82-115); MAGNESIUM 2.3 mg/dL (1.6-2.3); POTASSIUM 4.7 mmol/l (3.5-5.1); SODIUM 142 mmol/l (137-146)
--- NOTE | 2017-08-29 07:00 | NUR ---
RECEIVED BEDSIDE REPORT FROM ANNAMARIA DAVIS. RESTING IN HIGH FOWLERS WITH EYES OPEN. RESPS EVEN AND UNLABORED ON O2 VIA NC, WITH AUDIBLE WHEEZING NOTED. #24 INFUSING WITHOUT DIFFICULTY, SITE APPEARS HEALTHY. QUESTIONS WHEN HER DAUGHTER WILL BE IN TO VISIT. PLAN OF CARE DISCUSSED. SAFETY PRECAUTIONS REINFORCED. BED IN LOWEST POSITION WITH WHEELS LOCKED. BED ALARM ON FOR SAFETY. CALL LIGHT WITHIN REACH. WILL CONTINUE TO MONITOR.
[2017-08-29 07:41] VITALS: BP 148/83
[2017-08-29 08:48] VITALS: BP 148/83
--- NOTE | 2017-08-29 09:30 | NUR ---
PHYSICAL THERAPY IN WITH PT.
--- NOTE | 2017-08-29 10:15 | NUR ---
DR LYON IN WITH PT, NEW ORDERS RECEIVED.
--- NOTE | 2017-08-29 10:19 | NUR ---
10:15: PATIENT SEEN FOR EX, AND FA. SHE REQUIRED EXTENSIVE ENCOURAGEMENT TO PARTICIPATE, BUT ONCE SHE BEGAN ACTIVITIES SHE PARTICIPATED TO THE BEST OF HER ABILITIES. ACTIVE EX WITH ALL FOUR LIMBS. ENCOURAGED ACTIVE OPENING AND CLOSING OF RIGHT HAND FREQUENTLY DURING THE DAY FOR DECREASING THE EDEMA. MOD ASSIST REQUIRED FOR SUPINE TO SIT. SIT BALANCE WAS GOOD TODAY. STANDING DONE WITH MOD ASSIST OF ONE. RIGHT LEG IN GENU RECURVATUM AND SHE REQUIRED ASSIST TO KEEP IT FROM FROM SLIDING DURING SIT TO STAND, BUT DURING STANDING, SHE WAS ABLE TO BEAR WGT ON THE LEG. IN STANCE SHE REQUIRED MOD ASSIST TO MAINTAIN STANDING. ABLE TO TAKE 4 STEPS FORWARD AND BACK TO THE CHAIR. APPEARED TO TOLERATE TREATMENT WELL. PATIENT LEFT SITTING IN THE RECLINER WITH THE LEG RESTS UP, THE TRAY TABLE IN FRONT OF HER, AND THE ALARM HOOKED ON. REVIEWED USE OF CALL LIGHT.
[2017-08-29] MEDS ORDERED: KEFLEX500 MG PO (11:20)
[2017-08-29] MEDS ORDERED: ADLT ASA LOW81 MG PO (11:20)
[2017-08-29] MEDS ORDERED: NYSTOP100000 UNI TOP (11:20)
--- NOTE | 2017-08-29 12:00 | NUR ---
SITTING IN BEDSIDE CHAIR EATING LUNCH. RESPS EVEN AND UNLABORED ON O2 VIA NC. NO APPARENT DISTRESS NOTED. CALL LIGHT WITHIN REACH. WILL CONTINUE TO MONITOR.
--- NOTE | 2017-08-29 13:04 | NUR ---
Discharge instructions given. Patient verbalizes understanding of same. Discharged in stable condition via Wheelchair to [facility] with *Other. All belongings sent with pt. TO [facility] VIA MEDICAL TRANSPORT
--- NOTE | 2017-08-29 13:35 | NUR ---
NURSE TO NURSE REPORT CALLED TO SOPHIE DAVIS AT [facility].
== END 2017-08-29 13:05 | DRG 65 ==
LOC: ED 00:46 → ED-I 03:05 → ED 03:24 → MS2 03:25
PROVIDERS: Emergency Medicine; Nurse Practitioner Family; ADMIT Internal Medicine; ATTEND Internal Medicine
PROC: 0T9B70Z Drainage of Bladder with Drainage Device, Via Natural or Artificial Opening (ICD-10-PCS; principal; 2017-08-22)
DX: I63.49 Cerebral infarction due to embolism of other cerebral artery (principal); M62.82 Rhabdomyolysis; G81.91 Hemiplegia, unspecified affecting right dominant side; R47.01 Aphasia; I48.2 Chronic atrial fibrillation; I11.0 Hypertensive heart disease with heart failure; I50.9 Heart failure, unspecified; B37.2 Candidiasis of skin and nail; N39.0 Urinary tract infection, site not specified; T83.518A Infection and inflammatory reaction due to other urinary catheter, initial encounter; E78.5 Hyperlipidemia, unspecified; E86.0 Dehydration; F03.90 Unspecified dementia, unspecified severity, without behavioral disturbance, psychotic disturbance, mood disturbance, and anxiety; F32.9 Major depressive disorder, single episode, unspecified; I25.5 Ischemic cardiomyopathy; I25.10 Atherosclerotic heart disease of native coronary artery without angina pectoris; R47.1 Dysarthria and anarthria; R22.2 Localized swelling, mass and lump, trunk; R27.0 Ataxia, unspecified; Z85.3 Personal history of malignant neoplasm of breast; Z95.5 Presence of coronary angioplasty implant and graft; Z87.891 Personal history of nicotine dependence; Z51.5 Encounter for palliative care; Z66 Do not resuscitate; Y84.6 Urinary catheterization as the cause of abnormal reaction of the patient, or of later complication, without mention of misadventure at the time of the procedure
CPT/HCPCS: J2060

== ENCOUNTER 2017-10-30 09:16 | Inpatient (IN) | payer MEDICARE, OTHER ==
[2017-10-30] VITALS (13 sets, daily range): BP systolic 110–156; BP diastolic 59–94
[~2017-10-30] VITALS: Ht 170.2 cm; Wt 87.6 kg
[~2017-10-30 09:16] MED LIST changes: +ADLT ASA LOW81 MG PO; +KEFLEX500 MG PO; +NYSTOP100000 UNI TOP
--- NOTE | 2017-10-30 09:16 | NUR ---
PATIENT ARRIVES TO ROOM FOR EXAM VIA EMS
--- NOTE | 2017-10-30 10:07 | NUR ---
MEDICATED WITH 10 MG OF CARDIZEM. PATIENT TOLERATING WELL. IN AFIB AT A RATE OF 106 BPM.
[2017-10-30 10:08] LABS: HEMATOCRIT 43.5 % (37.0-47.0); HEMOGLOBIN 13.7 g/dl (12.0-16.0); IMMATURE GRANULOCYTES 0.3 % (0.0-1.0); MEAN CELL VOLUME 95.2 fL CALC (80.0-100.0); MEAN CORPUSCULAR HGB CONC 31.5 g/L CALC (32.0-36.0); NEUT# 5.26 thou/uL (2.00-7.15); RED BLOOD COUNT 4.57 mill/uL (4.20-5.60); RED CELL DISTRI WIDTH 14.6 % (11.5-15.5)
--- NOTE | 2017-10-30 10:20 | NUR ---
TOLERATED STRAIGHT CATH WELL. PATIENT UNABLE TO VERIFY MEDICATION LIST.
[2017-10-30 10:26] LABS: ALBUMIN 4.1 g/dL (3.2-5.0); ALKALINE PHOSPHATASE 90 u/l (38-126); ANION GAP 19 (6-22 (CALC)); BILIRUBIN, TOTAL 0.9 mg/dL (0.0-1.4); BUN 30 mg/dL (8-23); BUN/CREATININE RATIO 34 (12-20 (CALC)); CARBON DIOXIDE 25 mmol/l (22-30); CHLORIDE 108 mmol/l (95-108); CREATININE 0.9 mg/dL (0.5-1.0); GFR 59 ML/MIN (>=60 (CALC)); GFR FOR AFR.AMER. > 60 ML/MIN (>=60 (CALC)); SGOT/AST 26 u/l (9-36); SGPT/ALT 24 u/l (11-66); SODIUM 148 mmol/l (137-146); TOTAL PROTEIN 7.4 g/dL (6.3-8.2)
[2017-10-30 10:27] LABS: POTASSIUM 3.5 mmol/l (3.5-5.1)
[2017-10-30 10:52] LABS: URINE BILIRUBIN - DIPSTICK NEGATIVE (NEGATIVE); URINE BLOOD DIPSTICK NEGATIVE (NEGATIVE); URINE GLUCOSE - DIPSTICK NEGATIVE (NEGATIVE); URINE KETONE TRACE mg/dL (NEGATIVE); URINE LEUK ESTERASE TRACE (NEGATIVE); URINE PH 5.5 (4.5-8.0); URINE PROTEIN - DIPSTICK 30 mg/dL (NEG-TRACE); URINE SPECIFIC GRAVITY 1.025; URINE UROBILINOGEN - DIPSTICK 0.2 E.U./dL (0.2)
[2017-10-30 10:59] LABS: URINE CLARITY CLOUDY; URINE COLOR DK. YELLOW; URINE NITRITE - DIPSTICK POSITIVE (Negative)
[2017-10-30 11:00] LABS: URINE BACTERIA MANY hpf; URINE EPITHELIAL CELLS MODERATE EPI/hpf (0-FEW)
--- NOTE | 2017-10-30 11:06 | NUR ---
PATIENT IS ALERT AND ORIENTED TO SELF ONLY. UNABLE TO ANSWER QUESTIONS APPROPRIATELY. MD INFORMED OF HR IN 140'S, AWAITING NEW ORDERS.
[2017-10-30 11:38] LABS: TSH, 3RD GENERATION 1.14 uIU/mL (0.47 - 4.68)
--- NOTE | 2017-10-30 12:10 | NUR ---
PATIENT SITTING UP ON STRETCHER STATES "WHY DID YOU LEAVE ME, SHE HURTS ME." LAB AT BEDSIDE TO COLLECT BLOOD CULTURES. PATIENT BECAME AGGRESSIVE PULLING AT STAFF YELLING "YOUR ARE TRYING TO HURT ME." PATIENT THAN PULLED AT IV SITE INFUSING CARDIZEM AT 10 MG/HR. ORDER FOR RESTRAINTS FROM . RESTRAINTS APPLIED.
--- NOTE | 2017-10-30 12:13 | NUR ---
REPORT GIVEN TO RYAN COLMENARES.
--- NOTE | 2017-10-30 12:30 | NUR ---
PT ADMITTED TO ICU BED VIA STRETCHER, PT ALERT BUT CONFUSED, ORIENTED TO NAME ONLY, REORIENTATION ATTEMPT NOT SUCCESSFUL, ADMISSION ASSESSMENT INFORMTIAON OBTIANED FROM OLD RECORD, LUNGS CLEAR WITH NO SHORTNESS OF BREATH OR DISTRESS NOTED, ABD SOFT AND BOWEL SOUNDS ACTIVE, SKIN WARM ALEX AND INTACT WITH NO BREAKDOWN NOTED, PT HAS 1.5 CM ROUND FLUID FILLED BLISTER NOTED TO R INNER FOOT ON APPARENT BUNION, 18G IV ACCESSES INTACT IN BILATERAL WRISTS, CARDIZEM GTT AND IVF INFUSING INTO R WRIST IV ACCESS, GOOD ASPIRATE NOTED ON BOTH SITES, TELE READING A FIB RATE 90-110, BP STABLE, PT NOT COMBATIVE AT THIS TIME BUT RESTRAINT REMAIN INPLACE BECUASE SURING TRANSFER PT MADE MTUIPLE ATTEMPTS TO REMOVE MEDICAL EQUIPMENT AND IV ACCESS EVEN WITH FREQUENT REDIRECTION, COMFORT MEASURES PROVIDED, ORIENTED TO ROOM AND UNIT, ALLMONITORIGN EQUIPMENT EXPLAINED PRIOR TO APPLICATION, CALL LOVE WITHIN REACH. WILL CONTINUE TO MONITOR.
--- NOTE | 2017-10-30 12:35 | NUR ---
PATIENT TRANSPORTED TO ICU WITH UNIX CONSULTANT IN PLACE, IV CARDIZEM INFUSING. BEDSIDE REPORT GIVEN TO JOSE ACKERMAN LPN AND JUSTIN HUDSON. CARE RELINQUISHED.
--- NOTE | 2017-10-30 13:20 | NUR ---
PT LAYING IN BED WATCHING TV, PT RANDOMLY CALLS OUT, PT REORIENTED NEEDED, CALL LOVE WITHIN REACH
--- NOTE | 2017-10-30 14:45 | NUR ---
PT PLACED ON BED RUBIO, PT CONTINUES TO CALL OUT THAT SHE NEEDS TO GO TO THE BATHROOM, PT REMINDED THAT SHE IS ON THE BED RUBIO
--- NOTE | 2017-10-30 15:00 | NUR ---
PT CONTINENT OF SMALL AMOUNT OF CLEAR GOOD URINE, LADONNA CARE PROVIDED AND BED RUBIO REMOVED, CALL LOVE WITHIN REACH, PT REMAINS CONFUSED AND POORLY REDIRECTED, WILL CONTINUE TO MONITOR.
--- NOTE | 2017-10-30 16:21 | NUR ---
PT LAYING IN BED RESTING WITH EYES CLOSED, AROUSES EASILY TO VERBAL STIMULI, RESTRAINTS REMAIN IN PLACE, CIRCULATION IS UNCOMPROMISED, CALL LOVE WITHIN REACH
--- NOTE | 2017-10-30 17:35 | NUR ---
SETUP ASSISTANCE PROVIDED WITH ROSY BOWIE
--- NOTE | 2017-10-30 18:28 | NUR ---
PT TOLERATED PM MEAL WELL, PT ASSISTED WITH GETTING ON THE BED RUBIO, REMINDED TO CALL FOR ASSISTANCE, CALL LOVE WITHIN REACH
--- NOTE | 2017-10-30 19:00 | NUR ---
awake. confused. unable to reorient. patient monitor shows a fib. #18 lt wrist saline lock. #18 rt wrist cardizem gtt infusing @ 10cchr ns infusing @ 20cchr. voided per bedpan. turkey sandwich given per request. fall precautions cont. bed alarm activated.
--- NOTE | 2017-10-30 20:30 | NUR ---
assisted to [facility] [place] x3 since 193 for total of 50cc urine. bladder scan x3 shows 0 ml.
--- NOTE | 2017-10-30 21:45 | NUR ---
up to bsc. voided drops of urine.
--- NOTE | 2017-10-30 21:50 | NUR ---
dr bray notified of urinary frequency. orders rec'd.
--- NOTE | 2017-10-30 23:00 | NUR ---
remains confused. tag press operator shows a fib hr 130. cardizem gtt increased to 15mg hr.
--- NOTE | 2017-10-30 23:10 | NUR ---
anxious. remains confused. haldol 1mg ivp given. monitor shows a fib hr 150.
--- NOTE | 2017-10-30 23:15 | NUR ---
automobile upholsterer apprentice shows a fib hr 150. remains restless. attempting to get oob. resps 38. lips slightly cyanotic. o2 began @ 3 l/m per nc.
[2017-10-30] MEDS ORDERED: LASIX20 MG PO (23:18)
[2017-10-30] MEDS ORDERED: SEROQUEL25 MG PO (23:18)
[2017-10-30] MEDS ORDERED: LEXAPRO10 MG PO (23:18)
[2017-10-30] MEDS ORDERED: KLOR-CON M2020 MEQ PO (23:18)
[2017-10-30] MEDS ORDERED: ATIVAN0.5 MG PO (23:19)
[2017-10-30] MEDS ORDERED: ASPIRIN EC325 MG PO (23:19)
[2017-10-30] MEDS ORDERED: BISOPRL/HC5 MG/6.25 PO (23:19)
--- NOTE | 2017-10-30 23:50 | NUR ---
remains restless. attempting to get oob. a fib 160's -170's. dr mccabe notified. orders rec'd.
[2017-10-31] VITALS (22 sets, daily range): BP systolic 90–154; BP diastolic 51–90
--- NOTE | 2017-10-31 00:10 | NUR ---
extra dose of ativan 1mg ivp given.
--- NOTE | 2017-10-31 00:15 | NUR ---
diagnostic cardiac sonographer shows a fib hr 120's. much calmer @ present. o2 changed to 35% v/m per rt.
--- NOTE | 2017-10-31 00:30 | NUR ---
clinical nutritionist shows a fib pvcs hr 104. sleeping @ present.
--- NOTE | 2017-10-31 01:00 | NUR ---
burlap man shows a fib pvcs hr 90
--- NOTE | 2017-10-31 02:00 | NUR ---
resting quietly. resps even & unlabored. no distress. advanced developer shows a fib pvcs. o2 cont.
--- NOTE | 2017-10-31 04:00 | NUR ---
lab here. blood drawn.
[2017-10-31 05:21] LABS: HEMATOCRIT 39.9 % (37.0-47.0); HEMOGLOBIN 12.4 g/dl (12.0-16.0); MEAN CELL VOLUME 95.7 fL CALC (80.0-100.0); MEAN CORPUSCULAR HGB 29.7 pG CALC (26.0-32.0); MEAN CORPUSCULAR HGB CONC 31.1 g/L CALC (32.0-36.0); RED BLOOD COUNT 4.17 mill/uL (4.20-5.60); RED CELL DISTRI WIDTH 14.6 % (11.5-15.5)
[2017-10-31 05:29] LABS: ANION GAP 15 (6-22 (CALC)); BUN 25 mg/dL (8-23); BUN/CREATININE RATIO 29 (12-20 (CALC)); CARBON DIOXIDE 26 mmol/l (22-30); CHLORIDE 110 mmol/l (95-108); CREATININE 0.9 mg/dL (0.5-1.0); GFR 59 ML/MIN (>=60 (CALC)); GFR FOR AFR.AMER. > 60 ML/MIN (>=60 (CALC)); SODIUM 148 mmol/l (137-146)
--- NOTE | 2017-10-31 06:00 | NUR ---
eyes closed. no distress. o2 cont. cardiac/vascular sonographer shows a fib pvcs.
--- NOTE | 2017-10-31 07:10 | NUR ---
PT LAYING IN BED RESTING WITH EYES CLOSED, AROUSES EASILY TO VERBAL STIMULI, PT DROWSEY, ORIENTED TO PERSON, PT'S SPEAK IS GARBLED, HR 74, RESP. 22, BP 122/76, O2 99% ON 2L VIA NC, LUNG SOUNDS CLEAR IN ALL SAMUELS, 18G LW IV, SALINE LOCKED, 18G RW IV WITH NS & CARDIZEM INFUSING AT PRESCRIBED RATE, NO REDNESS OR DRAINAGE AT SITE, RESTRAINTS REMAIN IN PLACE, CIRCULATION IS UNCOMPROMISED, PT CONTINUES TO PULL AT MONITORING EQUIPMENT AND IVS, AM ASSESSMENT COMPLETE, SEE INTERVENTIONS, SAFETY MEASURES REINFORCE, CALL LOVE WITHIN REACH
--- NOTE | 2017-10-31 07:35 | NUR ---
SETUP ASSISTANCE PROVIDED WITH AM MEAL, RESTRAINTS RELEASED FOR REPOSITIONING AND FOR AM MEAL, NURSE REMAINS AT BEDSIDE, RESTRAINTS SECURED AFTER AM MEAL, CIRCULATION UNCOMPROMISED, WARM BLANKET PROVIDED FOR COMFORT, CALL LOVE WITHIN REACH
--- NOTE | 2017-10-31 08:15 | NUR ---
ADDIE GRAIN THRESHER AT BEDSIDE
--- NOTE | 2017-10-31 09:39 | NUR ---
PT RESTING WITH EYES CLOSED AROUSES EASILY TO VERBAL STIMULI, NO S/S OF DISTRESS, SPEECH REMAINS GARBLED WITH MOMENTS OF CLARITY, RESTRAINTS REMAIN IN PLACE, CIRCULATION UNCOMPROMISED, CALL LOVE WITHIN REACH
--- NOTE | 2017-10-31 10:15 | NUR ---
PT SITTING UP IN BED WATCHING TV AND DOZING, SPEECH REMAINS GARBLED WITH MOMENTS OF CARITY, RESTRAINTS REMAIN IN PLACE, CIRCULATION IS UNCOMPROMISED, CALL LOVE WITHIN REACH
--- NOTE | 2017-10-31 11:05 | NUR ---
DR LYON & ADDIE AT BEDSIDE DISCUSSING PLAN OF CARE
--- NOTE | 2017-10-31 11:35 | NUR ---
SETUP ASSISTANCE PROVIDED WITH LUNCH
--- NOTE | 2017-10-31 12:15 | NUR ---
PT DROWSY, AROUSES TO VERBAL STIMULI, SPEECH REMAINS GARBLED WITH MOMENTS OF CLARITY, PT REMINDED TO CALL FOR ASSISTANCE, CALL LOVE WITHIN REACH
--- NOTE | 2017-10-31 13:26 | NUR ---
PT RESTING WITH EYES CLOSED, AROUSES EASILY TO VERBAL STIMULI, CALL LOVE WITHIN REACH
--- NOTE | 2017-10-31 15:43 | NUR ---
PT LAYING IN BED RESTING, AROUSES EASILY TO VERBAL STIMULI, VITAL SIGNS REMAIN STABLE, CALL LOVE WITHIN REACH
--- NOTE | 2017-10-31 16:49 | NUR ---
PT REPOSTIONED FOR COMFORT, PT AROUSES TO VERBAL STIMULI, PT DROWSY AND DRIFTS BACK TO SLEEP, CALL LOVE WITHIN REACH
--- NOTE | 2017-10-31 17:31 | NUR ---
PT SITTING UP IN BED WATCHING TV, SETUP ASSISTANCE PROVIDED WITH PM MEAL, PT'S SPEECH REMAINS GARBLED WITH MOMENTS OF CLARITY, VITAL SIGNS REMAIN STABLE, CALL LOVE WITHIN REACH
--- NOTE | 2017-10-31 18:19 | NUR ---
PT ASSISTED TO THE BSC & BACK TO BED, PT AMBULATED WITH A SLOW UNSTEADY, TOLERATED WELL, CALL LOVE WITHIN REACH
--- NOTE | 2017-10-31 19:00 | NUR ---
PT RESTING IN BED WITH EYES CLOSED. PT AROUSES EASILY TO VERBAL STIMULI. PT IS ALERT AND ORIENTED TO SELF. PERRLA. RESP ARE EVEN AND UNLABORED. O2 2L NC IN PLACE. NO DISTRESS NOTED. LUNGS ARE CLEAR. HR IRREGULAR. AFIB ON MONITOR 95-115 RATE. PULSES PALPABLE THROUGHOUT. NO EDEMA NOTED. BS ACTIVE. #18 RW WITH NS @80CC/HR. NO REDNESS OR EDEMA NOTED. #18 LW SALINE LOCKED. NO REDNESS OR EDEMA NOTED. WILL CONTINUE TO MONITOR
--- NOTE | 2017-10-31 20:48 | NUR ---
HS MEDS GIVEN IN APPLESAUCE. PT TOLERATED WELL. RESP ARE EVEN AND UNLABORED. NO DISTRESS NOTED. WILL CONTINUE TO MONITOR
--- NOTE | 2017-10-31 22:39 | NUR ---
PT RESTING IN BED WITH EYES CLOSED. RESP ARE EVEN AND UNLABORED. NO DISTRESS NOTED. WILL CONTINUE TO MONITOR
[2017-11-01] VITALS (15 sets, daily range): BP systolic 91–142; BP diastolic 60–101
--- NOTE | 2017-11-01 00:12 | NUR ---
OFFERRED PT TO GET UP AND USE BSC. PT DECLINED. NO INCONTINENCE NOTED. WILL CONTINUE TO MONITOR
--- NOTE | 2017-11-01 02:04 | NUR ---
PT RESTING IN BED WITH EYES CLOSED. RESP ARE EVEN AND UNLABORED. NO DISTRESS NOTED. WILL CONTINUE TO MONITOR.
--- NOTE | 2017-11-01 03:03 | NUR ---
ASSISTED PT TO BS. 275CC OF RED/ORANGE URINE. PT ASSISTED BACK TO BED. PT TOLERATED WELL.
--- NOTE | 2017-11-01 04:00 | NUR ---
PT RESTING IN BED WITH EYES CLOSED. RESP ARE EVEN AND UNLABORED. NO DISTRESS NOTED. WILL CONTINUE TO MONITOR
--- NOTE | 2017-11-01 04:15 | NUR ---
LAB INTO DRAW AM LABS
[2017-11-01 05:07] LABS: HEMATOCRIT 39.1 % (37.0-47.0); HEMOGLOBIN 12.1 g/dl (12.0-16.0); IMMATURE GRANULOCYTES 0.2 % (0.0-1.0); MEAN CELL VOLUME 96.8 fL CALC (80.0-100.0); MEAN CORPUSCULAR HGB CONC 30.9 g/L CALC (32.0-36.0); NEUT# 3.5 thou/uL (2.00-7.15); RED BLOOD COUNT 4.04 mill/uL (4.20-5.60); RED CELL DISTRI WIDTH 14.7 % (11.5-15.5)
[2017-11-01 05:34] LABS: ANION GAP 13 (6-22 (CALC)); BUN 21 mg/dL (8-23); BUN/CREATININE RATIO 25 (12-20 (CALC)); CARBON DIOXIDE 27 mmol/l (22-30); CHLORIDE 113 mmol/l (95-108); CREATININE 0.8 mg/dL (0.5-1.0); GFR > 60 ML/MIN (>=60 (CALC)); GFR FOR AFR.AMER. > 60 ML/MIN (>=60 (CALC)); POTASSIUM 3.8 mmol/l (3.5-5.1); SODIUM 149 mmol/l (137-146)
--- NOTE | 2017-11-01 05:50 | NUR ---
PT RESTING IN BED WITH EYES CLOSED. RESP ARE EVEN AND UNLABORED. NO DISTRESS NOTED. WILL CONTINUE TO MONITOR
--- NOTE | 2017-11-01 06:11 | NUR ---
PT ASSISTED TO BSC. MINIMAL URINE NOTED. WILL CONTINUE TO MONITOR
--- NOTE | 2017-11-01 07:17 | NUR ---
pt awake in bed; no distress noted; pt offers no complaints; assessment completed at this time; pt alert to self only; speech garbled but improved; denies pain; resp even and unlabored; lungs clear with crackles in left base; skin color wnl; o2 per nc at 2L; no cough noted; hr irreg; strong pulses; 1+ edema noted to ble> on rle; afib 120-140s on monitor; abd soft with bs present; no bm noted per account underwriter; assist to bsc to void 200 cloudy/strong orange urine; pericare per staff; #18 in rfa patent with ns infusing at 80cc/hr; #18 in lw flushed and patent; no redness or edema noted at site; discoloration noted to rle; plan of care/ am meds explained; bed alarm active for pt safety; call light within reach; will continue to monitor closely
--- NOTE | 2017-11-01 08:05 | NUR ---
awake in bed; no distress noted; iv intact and patent; afib on monitor; o2 per nc; call light within reach; will continue to monitor
--- NOTE | 2017-11-01 09:03 | NUR ---
Dr Connor notified of elevated HR; awaiting orders;
--- NOTE | 2017-11-01 10:15 | NUR ---
awake/confused; assisted to bsc; no urine noted; marketing writer assisted pt with bath; complete linen change; o2 per nc; iv patent; no redness or edema noted at site; afib/pvc 120-130 on monitor; call light within reach; will continue to monitor
--- NOTE | 2017-11-01 12:11 | NUR ---
awake eating lunch; no distress noted; resp even and unlabored; iv patent; no redness or edema noted at site; afib 112 on monitor; o2 per nc; pt making several attempts to get out of bed; easily redirected; bed alarm active for pt safety; call light within reach; will continue to monitor
--- NOTE | 2017-11-01 13:26 | NUR ---
Dr Bae at bedside to assess pt and discuss plan of care
--- NOTE | 2017-11-01 14:20 | NUR ---
awake; agitated/anxious; becoming more difficult to redirect; assisted to bsc; voided 100cc orange urine; iv bolus continues; no redness or edema noted at site; no s/s of fluids overload; o2 per nc; afib/pvc on monitor; bed alarm active for pt safety; will continue to monitor
--- NOTE | 2017-11-01 14:44 | NUR ---
more anxious; attempting to climb out of bed; redirection attempted; pt removing monitoring attachments; medicated with ativan as per orders; will continue to monitor
--- NOTE | 2017-11-01 15:54 | NUR ---
resting in bed with eyes closed; no distress noted; resp even and unlabored; o2 per nc; iv patent; no redness or edema noted at site; afib/pvc 100s on monitor; bed alarm active for pt safety; call light within reach; will continue to monitor
--- NOTE | 2017-11-01 18:19 | NUR ---
awake in bed; no distress noted; iv patent; no redness or edema noted at site; afib 100s on monitor; o2 per nc; bed alarm active for pt safety; bed in lowest position; call light within reach
--- NOTE | 2017-11-01 19:30 | NUR ---
RESTING IN BED WITH EYES CLOSED, RESPIRATIONS EVEN AND UNLABORED ON O2 @2L VIA NC, O2 SAT 97%. OPENS EYES WITH VERBAL COMMAND, SPEECH IS GARBLED, ABLE TO STATE AND NAME, WHEN ASKED WHERE SHE IS, SPEECH IS UNINTELLIGIBLE. IN NO APPARENT DISTRESS. NS INFUSING TO RW AT 80CC/HR. PO FLUIDS IN REACH, BED ALARM IN PLACE TO PREVENT FALLS. WILL CONTINUE TO MONITOR.
--- NOTE | 2017-11-01 20:50 | NUR ---
PT BECOMES RESTLESS WHEN ASKED WHAT IS THE MATTER, PT POINTING TO BSC, OOB WITH ONE PERSON ASSISTANCE, VOIDING ORANGE URINE, THEN BACK TO BED, BED ALARM IN PLACE.
--- NOTE | 2017-11-01 22:49 | NUR ---
CARDIZEM GTT 10ML/HR STARTED AT 2244, DUE TO HR MAINTAINING ABOVE 115.
[2017-11-02] VITALS (14 sets, daily range): BP systolic 86–133; BP diastolic 53–78
--- NOTE | 2017-11-02 00:04 | NUR ---
IN SEMIFOWLERS WITH EYES CLOSED, RESPIRAITONS EVEN AND UNLABORED. CONTINUES TO BE IN AFIB FROM 97-106, CARDIZEM GTT AT 10ML/HR.
--- NOTE | 2017-11-02 03:55 | NUR ---
WAKES EASILY FOR MORNING VITAL SIGNS, IS CALM AND COOPERATIVE. CARDIZEM GTT CONTINUES TO INFUSE AT 10ML/HR, HR 79 AFIB, B/P 116/64.
--- NOTE | 2017-11-02 06:32 | NUR ---
STAFF ATTEMPTED TO DO BED BATH, PT REFUSES BECOMES VERY UPSET STATING "NO, GO HOME". ONLY WASHED HER FACE. BED ALARM IN PLACE.
--- NOTE | 2017-11-02 07:05 | NUR ---
PT OOB WITH ASSIST TO BSC, CONTINENT OF SMALL AMOUNT OF CONCENTRATED ORANGE URINE AND BM, LADONNA CARE PER STAFF, BACK TO BED WITH SAME MIN ASSIST, CALL LOVE WITHIN REACH
--- NOTE | 2017-11-02 07:25 | NUR ---
PT RESTING IN BED, ALERT TO SELF ONLY, REMAINS CONFUSED, SPEECHA GARDBLED AND NOT ALWAYS EASILY REDIRECTED, AM ASSESSMENT COMPLETED SEE INTERVENTIONS, IV ACCESS 18G RFA WITH IVF@KVO AND CARDIZEM GTT AT 10MG/HR, TELE RADING A FIB RATE 80-110, FLUCUATING GREATLY, PT ALSO HAS 18G IV ACCESS SALINE LOCKED IN LEFT WRIST FLUSHED W/O INCIDENT, SKIN INTACT PT HAS 1+ EDEMA NOTED TO BLE LUNGS DIMINSHED WITH NO SOB OR DISTRESS NOTED, O2 REMAINS IN PLACE AT 2L VIA NC, COMFORT MEASURES PROVIDED, PT COOPERATIVE AT THIS TIME, BED ALARM REMAINS IN USE FOR PT SAFETY, EASILY VISIBLE FROM NURSES STATION FOR SAFETY WELL. CALL LOVE WITHIN REACH.
--- NOTE | 2017-11-02 07:40 | NUR ---
OOB AGAIN WITH MIN ASSIST CONTINENT OF 200ML ORANGE URINE (PER WET MIXER) AND BACK TO BED WITH SAME ASSIST, TOLERATED ACTIVITY WELL, CARDIZEM GTT CONTINUES, CALL LOVE WITHIN REACH
--- NOTE | 2017-11-02 08:15 | NUR ---
TOLERATED AM MEAL WELL, REMAINS CONFUSED, AND NOT ALWAYS EASILY REDIRECTED, CALL LOVE WITHIN REACH, WILL CONTINUE TO MONITOR.
--- NOTE | 2017-11-02 09:15 | NUR ---
PT DOZING IN BED, CALL IVAN CHRISTIANSON REACH, NO S/S OF DISTRESS OR DISCOMFORT NOTED
--- NOTE | 2017-11-02 10:05 | NUR ---
PT TOOK AM MEDICATIONS, CHEW MOST OF THEM UP DESPITE REPEATED ATTEMPTS TO REDIRECT TO SWALLOW, CARDIZEM GTT REMAINS AT 10MG, WILL ATTEMPT TO WEAN AM PO CARDIZEM DOSE INCREASED THIS AM BY , CALL LOVE WITHIN REACH
--- NOTE | 2017-11-02 10:32 | NUR ---
PT POINTING AND TALKING TO TELEVISION, REMAINS EASILY VISIBLE FROM NURSES STATION AND BED ALARM IN USE FOR PATIENT SAFETY. CALL BEL WITHIN REACH.
--- NOTE | 2017-11-02 11:18 | NUR ---
PT REPOSITIONED FOR COMFORT, CALL LOVE WITHIN REACUB, IV CARDIZEM REMAINS ON HOLD WILL MONITOR TOLERANCE
--- NOTE | 2017-11-02 12:15 | NUR ---
pt tolerated afternoon meal well, good appetite noted, frequent redirection required pt cooperative thus far, call durán within reach
--- NOTE | 2017-11-02 14:00 | NUR ---
pt resting, offers no complaints, continues to tolerate cardizem gtt on hold with tele continuing to read a fib rate 80-100, BP remains stable, call durán within reach
--- NOTE | 2017-11-02 15:43 | NUR ---
Pt cooperative with bed bath and gown changed, brushed teeth as well, comfort measures provided, repositioned in bed, some faint wheezes heard but no distress noted, call durán within reach, bed alarm remains in use for pt safety.
--- NOTE | 2017-11-02 16:16 | NUR ---
pt oob to bsc, no results, back to bed with same assist, and repositioned for comfort, callbell within reach
--- NOTE | 2017-11-02 17:32 | NUR ---
pt makes repeated intermittent attempts to get out of bed, redirected fort short periods of time, remains confused, IVF continue at prescribed rate, call durán [facility], bed alarm remains in use for pt safety, easily visible from nurses station for safety as well, will continue to monitor
--- NOTE | 2017-11-02 17:51 | NUR ---
PT ASSISTED TO SIT UP ON EDGE OF BED FOR PM MEAL, SET UP ASSIST PROVIDED, CALL LOVE WITHIN REACH, WILL CONTINUE TO MONITOR
--- NOTE | 2017-11-02 18:12 | NUR ---
OOB TO BSC, PT STATES SHE HAS TO PEE, NO URINE PRODUCED, BACK TO BED WITH MOD ASSIST, CALL LOVE WITHIN REACH
--- NOTE | 2017-11-02 18:24 | NUR ---
PT MORE AGITATED, CALLING OUT, MEDICATED ORDERED, BLADDER SCAN PERFORMED TO RULE OUT URINARY RETENTION, MAX AMOUNT 215ML, WILL CONTINUE TO MONITOR.
--- NOTE | 2017-11-02 19:00 | NUR ---
PT RESTING IN BED WITH EYES CLOSED. PT AROUSES EASILY TO VERBAL STIMULI. PT IS ALERT AND ORIENTED TO PERSON. PERRLA. RESP ARE EVEN AND UNLABORED. NO DISTRESS NOTED. LUNGS ARE CLEAR. HR IRREGULAR. AFIB ON MONITOR. PULSES PALPABLE THROUGHOUT. 1+ EDEMA TO BILAT LLE. BS ACTIVE. #18 RFA WITH D5 1/2 NS @100cc/hr INFUSING. NO REDNESS OR EDEMA NOTED. #18 LEFT HAND SALINE LOCKED. NO REDNESS OR EDEMA NOTED. BED ALARM ON. WILL CONTINUE TO MONITOR
--- NOTE | 2017-11-02 20:52 | NUR ---
PT RESTING IN BED WITH EYES CLOSED. RESP ARE EVEN AND UNLABORED. NO DISTRESS NOTED. PT REMAINS AFIB 70-90'S ON MONITOR. WILL CONTINUE TO MONITOR
--- NOTE | 2017-11-02 23:00 | NUR ---
PT RESTING IN BED WITH EYES CLOSED. RESP ARE EVEN AND UNLABORED. NO DISTRESS NOTED. WILL CONTINUE TO MONITOR
[2017-11-03] VITALS (12 sets, daily range): BP systolic 97–130; BP diastolic 60–83
--- NOTE | 2017-11-03 01:00 | NUR ---
PT RESTING IN BED WITH EYES CLOSED. RESP ARE EVEN AND UNLABORED. NO DISTRESS NOTED. REMAINS AFIB ON MONITOR. WILL CONTINUE TO MONITOR
--- NOTE | 2017-11-03 02:15 | NUR ---
PT ASSISTED TO BSC WITH MODERATE ASSISTANCE. VOIDED 300CC OR ORANGE COLORED URINE. PT ASSISTED BACK BED.
--- NOTE | 2017-11-03 03:19 | NUR ---
ASSISTED PT TO BSC. PT DID NOT VOID AT THIS TIME. ASSISTED PT BACK TO BED. #18 IN RFA DC'D DUE TO BLEEDING AT SITE. CATH TIP INTACT. PT TOLERATED WELL.
--- NOTE | 2017-11-03 04:44 | NUR ---
PT RESTING IN BED WITH EYES CLOSED. RESP ARE EVEN AND UNLABORED. NO DISTRESS NOTED. REMAINS AFIB ON MONITOR. WILL CONTINUE TO MONITOR
--- NOTE | 2017-11-03 05:51 | NUR ---
PT RESTING IN BED WITH EYES CLOSED. RESP ARE EVEN AND UNLABORED. NO DISTRESS NOTED. PT REMAINES IN AFIB ON THE MONITOR. WILL CONTINUE TO MONITOR
--- NOTE | 2017-11-03 07:20 | NUR ---
PT RESTING IN BED, ALERT TO SELF ONLY, REMAINS CONFUSED, SPEECH GARBLED AND NOT ALWAYS EASILY REDIRECTED, AM ASSESSMENT COMPLETED SEE INTERVENTIONS, IV ACCESS 18G LW WITH IVF, TELE READING A FIB RATE 115-145 , FLUCUATING GREATLY, AM PO CARDIZEM ADMINISTERED WILL MONITOR FOR EFFICACY, SKIN INTACT PT HAS TRACE TO 1+ EDEMA NOTED TO BLE, LUNGS DIMINSHED WITH FAINT EXPIRATORY WHEEZES NOTED, O2 REMAINS IN PLACE AT 2L VIA NC, SOME EXERTIONAL DYSPNEA NOTED, COMFORT MEASURES PROVIDED, PT COOPERATIVE AT THIS TIME, BED ALARM REMAINS IN USE FOR PT SAFETY, EASILY VISIBLE FROM NURSES STATION FOR SAFETY WELL. CALL LOVE WITHIN REACH.
--- NOTE | 2017-11-03 07:50 | NUR ---
PT OOB TWICE TO BSC, FIRST TIME NO SUCCESS SECOND TIME CONTINENT OD 300 ML ORANGE DK URINE, LADONNA CARE PROVIDED AND TRASNFERRED TO RECLINER AT BEDSIDE, CALL LOVE WITHIN REACH
--- NOTE | 2017-11-03 08:24 | NUR ---
SET UP ASSIST PROVIDED FOR AM MEAL, PT ATE SMALL AMOUNT W/O INCIDENT, CURRENTLY RESTING IN RECLINER WITH EYES CLOSED, NO S/S OF DISTRESS NOTED, WILL CONTINUE TO MONITOR.
--- NOTE | 2017-11-03 09:51 | NUR ---
PT REMAINS SITTING UP IN RECLINER, DOZING INTERMITTENLY, REQUIRES CONSTANT DIRECTION WITH ANY CARE, CALL LOVE WITHIN REACH
--- NOTE | 2017-11-03 11:00 | NUR ---
PT DOZING IN RECLINER, NO S/S OF DISTRESS NOTED, HR REMAINS CONTROLLED RATE IN THE 70-90'S, BP STABLE, WILL CONTINUE TO MONITOR
--- NOTE | 2017-11-03 11:51 | NUR ---
PT REMAINS SITTING UP IN RECLINER AT BEDSIDE, DOZES INTERMITTENLY, OFFERS NO COMPLAINTS HRT MORE CONTROLLED SINCE DIA PO THIS AM SURRENTLY A FIB RATE 85, CALL LOVE WITHIN REACH, AND EASILY VISIBLE FROM THE NURSES STATION, WILL CONTINUE TO MONITOR.
--- NOTE | 2017-11-03 13:06 | NUR ---
PT MORE AWAKE NOW, AFTERNOON MEAL REHEATED AND SET UP ASSIST PROVIDED, TELE CONTINUES READING A FIB RATE 99, BP STABLE, WILL CONTINUE TO MONITOR.
--- NOTE | 2017-11-03 13:52 | NUR ---
IN TO SEE PATIENT PLAN OF CARE DISCUSSED, LAB AT BEDSIDE TO DRAW LABWORK ORDERED, MEDICATION CHANGES DISCUSSED, PT WILL REQUIRE REINFORCEMENT RELATED TO CONFUSION, CALL LOVE WITHIN REACH
[2017-11-03 14:00] LABS: HEMATOCRIT 43.5 % (37.0-47.0); HEMOGLOBIN 13.2 g/dl (12.0-16.0); IMMATURE GRANULOCYTES 0.4 % (0.0-1.0); MEAN CELL VOLUME 98.2 fL CALC (80.0-100.0); MEAN CORPUSCULAR HGB 29.8 pG CALC (26.0-32.0); MEAN CORPUSCULAR HGB CONC 30.3 g/L CALC (32.0-36.0); NEUT# 3.32 thou/uL (2.00-7.15); RED BLOOD COUNT 4.43 mill/uL (4.20-5.60); RED CELL DISTRI WIDTH 14.4 % (11.5-15.5)
[2017-11-03 14:19] LABS: ALBUMIN 3.5 g/dL (3.2-5.0); ALKALINE PHOSPHATASE 78 u/l (38-126); ANION GAP 13 (6-22 (CALC)); BILIRUBIN, TOTAL 0.4 mg/dL (0.0-1.4); BUN 18 mg/dL (8-23); BUN/CREATININE RATIO 25 (12-20 (CALC)); CARBON DIOXIDE 25 mmol/l (22-30); CHLORIDE 113 mmol/l (95-108); CREATININE 0.7 mg/dL (0.5-1.0); GFR > 60 ML/MIN (>=60 (CALC)); GFR FOR AFR.AMER. > 60 ML/MIN (>=60 (CALC)); SGOT/AST 20 u/l (9-36); SGPT/ALT 28 u/l (11-66); SODIUM 147 mmol/l (137-146); TOTAL PROTEIN 6.6 g/dL (6.3-8.2)
--- NOTE | 2017-11-03 16:22 | NUR ---
PT REMAINS SITTING UP IN RECLINER, TOLERATED MODERATE AMOUNT OF LUNCH, REMAINS CONFUSED AND NOT ALWAYS EASILY REDIRECTED, SPEECH REMAINS GARBLED AND DIFFICULT TO UNDERSTAND AT TIMES, CALL LOVE WITHIN REACH AND REMAINS EASILY VISIBLE FROM NURSES STATION
--- NOTE | 2017-11-03 19:30 | NUR ---
PT SITTING UP IN CHAIR AT BEDSIDE. PT IS ALERT AND ORIENTED TO SELF. PERRLA. RESP ARE EVEN AND UNLABORED. NO DISTRESS NOTED. LUNGS ARE DIMINISHED THROUGHOUT. AUDIBLE WHEEZING NOTED. HR IRREGULAR. AFIB ON MONITOR 80-110. WITH INCREASED RATE UPON MOVEMENT. 1+ EDEMA NOTED TO BILAT LOWER EXTREMITIES. PULSES PALPABLE THROUGHOUT. BS ACTIVE. PT ASSISTED TO BSC VOIDED 300CC ORANGE URINE. PT ON PYRIDIUM. PT THEN ASSISTED TO BED. PT REQUIRED MODERATE ASSITANCE THROUGHOUT TRANSFER. #18 LEFT WRIST. SALINE LOCKED. NO REDNESS OR EDEMA NOTED. WILL CONTINUE TO MONITOR
--- NOTE | 2017-11-03 19:52 | NUR ---
NOTIFIED DR DEL CASTILLO OF [facility]. CONTINUE IVF ORDERED.
--- NOTE | 2017-11-03 20:15 | NUR ---
#20 RFA STARTED X2 ATTEMPT. #18 LEFT WRIST DC'D CATH TIP INTACT. PT TOLERATED WELL.
--- NOTE | 2017-11-03 20:57 | NUR ---
PT MAKES MULITPLE ATTEMPTS TO GET OUT OF BED. PT REORIENTED. BED ALARM IN PLACE. WILL CONTINUE TO MONITOR
--- NOTE | 2017-11-03 22:23 | NUR ---
PT AWAKE IN BED MUMBLING. RESP ARE EVEN AND UNLABORED. NO DISTRESS NOTED. REORIENTED TO PT. WILL CONTINUE TO MONITOR
--- NOTE | 2017-11-03 22:33 | NUR ---
ATIVAN 0.5MG GIVEN DUE TO PT CONTINUOUSLY TRYING TO GET OUT OF BED. WILL CONTINUE TO MONITOR
--- NOTE | 2017-11-03 23:58 | NUR ---
PT RESTING IN BED WITH EYES CLOSED. PT WITH INTERMITTENT CALLING OUT. RESP ARE EVEN AND UNLABORED. NO DISTRESS NOTED. WILL CONTINUE TO MONITOR
[2017-11-04] VITALS (12 sets, daily range): BP systolic 96–139; BP diastolic 56–90
--- NOTE | 2017-11-04 01:55 | NUR ---
PT RESTING IN BED WITH EYES CLOSED. RESP ARE EVEN AND UNLABORED. NO DISTRESS NOTED. REMAINS AFIB ON MONITOR. WILL CONTINUE TO MONITOR
--- NOTE | 2017-11-04 04:03 | NUR ---
PT RESTING IN BED WITH YES CLOSED. RESP ARE EVEN AND UNLABORED. NO DISTRESS NOTED. WILL CONTINUE TO MONITOR
--- NOTE | 2017-11-04 05:56 | NUR ---
PT RESTING IN BED WITH EYES CLOSED. RESP ARE EVEN AND UNLABORED. NO DISTRESS NOTED. WILL CONTINUE TO MONITOR
--- NOTE | 2017-11-04 07:27 | NUR ---
awake in bed; no apparent distress noted; assessment completed at this time; pt alert to person only; speech garbled; no s/sx of pain noted; no n/v noted; resp even and unlabored; lungs clear with exp wheezing noted on exertion; skin color wnl; o2 per nc at 2L; dry armored car driver cough noted; hr irreg; strong pulses; trace edema noted to ble; sr/pac on monitor; abd soft/ distended with bs present; no bm noted per technical writer; no urine to inspect at this time; bsc; #20 in rfa patent with ivf infusing without complication; no redness or edema noted at site; dry/flaky skin noted to ble with discoloration noted to worse to rle; plan of care/am meds explained; bed alarm active for pt safety; call light within reach; will continue to monitor
--- NOTE | 2017-11-04 08:00 | NUR ---
awake; eating breakfast; no distress noted; iv patent; o2 per nc; afib on monitor; call light within reach; will continue to monitor
--- NOTE | 2017-11-04 08:22 | NUR ---
Dr Connor at bedside to asess pt; will continue to monitor
--- NOTE | 2017-11-04 08:53 | NUR ---
up to recliner; complete linen change
--- NOTE | 2017-11-04 10:19 | NUR ---
pt awake in recliner; no distress noted; iv patent; no redness or edema noted at site; afib on monitor; o2 per nc; call light within reach; will continue to monitor
--- NOTE | 2017-11-04 11:33 | NUR ---
complete bath per continuity writer; lotion applied to legs and back; skin noted very dry and flaky; assist back to bed per request; afib on monitor; o2 per nc; will continue to monitor
--- NOTE | 2017-11-04 12:08 | NUR ---
awake in bed; eating lunch; no distress noted; iv patent; no redness or edema noted at site; afib/pvc on monitor; o2 per nc; bed alarm active for pt safety; call light within reach; will continue to monitor
--- NOTE | 2017-11-04 13:57 | NUR ---
awake; more confused/anxious; removing gown and monitoring attachments; pt has made multiple attempts to get out of bed; assist to bsc and then recliner; pt more difficult to redirect; iv patent; no redness or edema noted at site; o2 per nc; afib/pvc on monitor; will continue to monitor closely
--- NOTE | 2017-11-04 15:51 | NUR ---
remains up to recliner; asleep; no distress noted; resp even and unlabored; iv patent; no redness or edema noted at site; afib/pvc on monitor; o2 per nc; increased visual observation for pt safety; call light within reach; will continue to monitor
--- NOTE | 2017-11-04 18:10 | NUR ---
awake in recliner; eating dinner; no distress noted; resp even and unlabored; iv patent; fluids infusing without complication; no redness or edema noted at site; afib/pvc on monitor; o2 per nc; call light within reach;
--- NOTE | 2017-11-04 19:30 | NUR ---
REPORT FROM Tarsha NEWELL RN. ASSUMED PT. CARE.
--- NOTE | 2017-11-04 20:35 | NUR ---
PT. ASSISTED TO BEDSIDE COMMODE AND THEN TO BED. ONE NURSE MAX ASSIST. PT. WEAK. APPROX 300 CC OF PYRIDIUM STAINED URINE NOTED TO PAD ON BEDSIDE CHAIR. PT. REMAINS ORIENTED TO PERSON ONLY. SPEECH REMAINS GARBLED AND MAINLY UNINTELLIGIBLE. PT. REORIENTED TO TREATMENT ROOM AND SITUATION. BILAT LOWER LUNG WHEEZES NOTED. MILD DYSPNEA ON EXERTION. PT. REMAINS RATE CONTROLLED A-FIB IN THE 80-90'S AT THIS TIME. CALL LIGHT PLACED WITHIN REACH. WILL CONTINUE TO ASSESS.
--- NOTE | 2017-11-04 22:05 | NUR ---
PT. RESTING COMFORTABLY IN BED IN NO DISTRESS. CALL LIGHT REMAINS WITHIN REACH. IV FLUIDS HAVE BEEN DC'D PER MD. PT. REMAINS IN RATE CONTROLLED A-FIB. NO DISTRESS.
--- NOTE | 2017-11-04 23:00 | NUR ---
PT. UP TO BEDSIDE COMMODE AT THIS TIME. APPROX 350 CC URINE OUT AT THIS TIME. MAX ONE PERSON ASSIST. CALL LIGHT PLACED BACK WITHIN REACH.
[2017-11-05] VITALS (11 sets, daily range): BP systolic 89–156; BP diastolic 53–79
--- NOTE | 2017-11-05 | NUR ---
PT. RESTING WITH EYES CLOSED. REMAINS ROUSABLE TO LIGHT TOUCH/VERBAL STIMULI. CALL LIGHT REMAINS WITHIN REACH. REMAINS IN RATE CONTROLLED A-FIB. WILL CONTINUE TO MONITOR.
--- NOTE | 2017-11-05 01:55 | NUR ---
PT. CONTINUES TO REST IN NO DISTRESS. OCCASIONALLY AWAKENS, BUT GOES BACK TO SLEEP. NOT ATTEMPTING TO GET OUT OF BED TONIGHT. PT. REMAINS ORIENTED TO PERSON ONLY. CALL LIGHT REMAINS WITHIN REACH.
--- NOTE | 2017-11-05 04:00 | NUR ---
REMAINS AFEBRILE AT THIS TIME. NO DISTRESS. RESPS EVEN AND UNLABORED. SKIN WARM AND DRY. CALL LIGHT REMAINS WITHIN REACH.
[2017-11-05 05:03] LABS: HEMATOCRIT 39.4 % (37.0-47.0); HEMOGLOBIN 12.2 g/dl (12.0-16.0); IMMATURE GRANULOCYTES 0.2 % (0.0-1.0); MEAN CELL VOLUME 95.6 fL CALC (80.0-100.0); MEAN CORPUSCULAR HGB 29.6 pG CALC (26.0-32.0); NEUT# 2.4 thou/uL (2.00-7.15); RED BLOOD COUNT 4.12 mill/uL (4.20-5.60); RED CELL DISTRI WIDTH 14.1 % (11.5-15.5)
[2017-11-05 05:14] LABS: ANION GAP 11 (6-22 (CALC)); BUN 16 mg/dL (8-23); BUN/CREATININE RATIO 24 (12-20 (CALC)); CARBON DIOXIDE 27 mmol/l (22-30); CHLORIDE 108 mmol/l (95-108); CREATININE 0.7 mg/dL (0.5-1.0); GFR > 60 ML/MIN (>=60 (CALC)); GFR FOR AFR.AMER. > 60 ML/MIN (>=60 (CALC)); SODIUM 142 mmol/l (137-146)
--- NOTE | 2017-11-05 05:33 | NUR ---
PT. CONTINUES TO REST WITH EYES CLOSED IN NO DISTRESS. REMAINS EASILY AROUSABLE TO LIGHT VERBAL STIMULI. REMAINS RATE CONTROLLED A-FIB WITH RATE IN THE 70'S.
--- NOTE | 2017-11-05 06:00 | NUR ---
PT. ASSISTED UP TO BEDSIDE COMMODE. APPROX 100 CC OF PYRIDIUM STAINED URINE NOTED TO BED PAD. PT. ASSISTED WITH PERINEAL CLEANSE. APPROX 50 CC OF STAINED URINE OUT AT THIS TIME. ASSISTED BACK TO BED WITH MAX 1 PERSON ASSIST TO TURN. REMAINS WITH DYSPNEA ON EXERTION. CALL LIGHT PLACED BACK WITHIN REACH. HR DOES ELEVATE WITH ANY EXERTION WELL. HR TO 110'S A-FIB. AFTER APPROX 5 MINS OF REST PT. HR A-FIB RATE CONTROLLED IN THE 70-90'S.
--- NOTE | 2017-11-05 07:40 | NUR ---
awake; no apparent distress noted; pt offers no complaints; assessment completed at this time; pt alert to person only; speech garbled; denies pain; no n/v noted; resp even and unlabored; lungs clear anterior/ exp wheeze posterior with crackles in left base; skin color wnl; o2 per nc at 2L; hr irreg; strong pulses; trace edema noted to ble; afib/pvc on monitor; abd soft/ distended with bs present; no bm noted per technical writer; no urine to inspect at this time; bsc; #20 flushed and patent to rfa/ saline locked; no redness or edema noted at site; plan of care/ am meds explained; pt repositioned for breakfast; call light within reach; will continue to monitor
--- NOTE | 2017-11-05 08:04 | NUR ---
awake; assist to bsc then recliner; afib/pvc on monitor; iv intact; o2 per nc; eating breakfast; call light within reach; will continue to monitor
--- NOTE | 2017-11-05 08:59 | NUR ---
Dr Connor at bedside to assess pt and discuss plan of care
--- NOTE | 2017-11-05 10:03 | NUR ---
pt noted attempting to get out of bed; bed alarm sounding; pt offers no complaints; assist to bsc; voided 700cc orange urine; iv intact; afib 120s on monitor; o2 per nc; sob noted with exertion; back to bed with monitoring attachments connected; lungs with wheezing throughout; call light within reach; will continue to monitor
--- NOTE | 2017-11-05 12:05 | NUR ---
assist to bsc; son on exertion noted; pt offers no complaints; denies pain; afib/pvc 130s with activity; iv intact; o2 per nc; assist back to recliner; bed alarm active for pt safety; call light within reach; will continue to monitor
--- NOTE | 2017-11-05 12:13 | NUR ---
PT at bedside for eval
--- NOTE | 2017-11-05 14:30 | NUR ---
awake; assist to bsc from recliner; sob on exertion noted; po fluids provided; afib/pvc on monitor; iv intact; o2 per nc; assist back to bed; bed alarm active for pt safety; call light within reach; will continue to monitor
--- NOTE | 2017-11-05 14:49 | NUR ---
pt become more anxious; attempting to get ot of bed per self; not easily reoriented; states " i need to go home"; pt removing monitoring attachments; will continue to monitor
--- NOTE | 2017-11-05 15:15 | NUR ---
bed alarming; pt attempting to climb out of bed; repositioned; will continue to monitor closely
--- NOTE | 2017-11-05 15:54 | NUR ---
awake; continues to make multiple attempts to get out of bed; bed alarm activbe for pt safety; iv intact; o2 per nc; afib on monitor; increased visual observation; call light within reach; will continue to monitor
--- NOTE | 2017-11-05 17:00 | NUR ---
pt noted sitting up in bed reaching in misael area; in to assess pt; lg loose brown stool noted; urinary incontinence also noted; complete bed bath and linen change; repositioned; will continue to monitor
--- NOTE | 2017-11-05 17:38 | NUR ---
Dr Connor at bedside; BM reported; two calls made in attempt to reach daughter for discharge; no answer; message left to return call
[2017-11-05] MEDS ORDERED: SEROQUEL25 MG PO (17:40)
[2017-11-05] MEDS ORDERED: CARDIZEM CD120 M1 PO (17:40)
[2017-11-05] MEDS ORDERED: KEFLEX500 MG PO (17:42)
--- NOTE | 2017-11-05 17:54 | NUR ---
Erika called this blog writer; updated on discharge plans; per Erika, her son just left and she will have to belt picker the pt in the am; discharged planned for am; Dr Connor aware
--- NOTE | 2017-11-05 18:15 | NUR ---
awake; dry heaving noted; scane emesis; offers no complaints; denies abd pain; afib 120s on monitor; o2 per nc; iv intact; bed alarm active for pt safety; bed in lowest position; call light within reach
--- NOTE | 2017-11-05 20:27 | NUR ---
PT IN BED WITH EYES CLOSED, RESPONDS EASILY TO VERBAL COMMAND, WHEN ASKED WHAT HER NAME AND IS PT STATE "I DON'T KNOW", RESPIRATIONS EVEN AND UNLABORED ON RA. IN NO APPARENT DISTRESS, BED ALARM IN PLACE TO PREVENT FALLS. SWALLOWS PO MEDS WITH NO PROBLEM. WILL CONTINUE TO MONITOR. ENCOURAGED TO USE CALL LIGHT FOR ASSISTANCE.
--- NOTE | 2017-11-05 22:30 | NUR ---
RESTING WITH EYES CLOSED, RESPIRATIONS EVEN AND UNLABORED.
[2017-11-06] VITALS (7 sets, daily range): BP systolic 89–145; BP diastolic 45–91
--- NOTE | 2017-11-06 00:51 | NUR ---
RESTING WITH EYES CLOSED, REPONDS EASILY TO VERBAL COMMAND. DENIE NEED TO USE BSC. CALL LIGHT IN REACH, BED ALARM IN PLACE.
--- NOTE | 2017-11-06 05:28 | NUR ---
OFFERED ASSISTANCE TO BSC, DUE TO NO URINE OUTPUT DURING THE NIGHT, PT REFUSES, STATES "NO, I DONT HAVE TO GO", IN GARBLED SPEECH.
--- NOTE | 2017-11-06 07:39 | NUR ---
pt asleep; easily aroused; offers no complaints; assessment completed at this time; no apparent distress noted; pt alert to person; speech garbled; denies pain; resp even and unlabored; sob with exertion noted; lungs noted with wheezing; o2 per nc; placed on ra at this time; skin color wnl; hr irreg; strong pules; 1+ edema noted to ble; afib on monitor; abd soft with bs present; bm noted; pericare to be given; no urine to inspect at this time; #20 in rfa flushed and patent; no redness or edema noted at site; plan of care/ am meds explained; bed alarm active for pt safety; call light within reach; will continue to monior
--- NOTE | 2017-11-06 08:08 | NUR ---
awake; up to recliner; cleansed for lg soft brown bm; no distress noted; afib on monitor; iv intact; call light within reach; will continue to monitor
--- NOTE | 2017-11-06 08:20 | NUR ---
Dr Connor at bedside to assess pt and discuss plan of care
--- NOTE | 2017-11-06 10:10 | NUR ---
up to recliner; no distress noted; iv intact; afib on monitor; call light within reach; will continue to monitor
--- NOTE | 2017-11-06 10:57 | NUR ---
daughter Erika called per comic writer; no answer; message left informed Erika pt is ready for discharge and to return call
--- NOTE | 2017-11-06 11:10 | NUR ---
daughter returned call to this service writer advisor; admits she is on her way back in town and will be there as soon as possible
--- NOTE | 2017-11-06 11:47 | NUR ---
awake; up to recliner eating lunch; no distress noted; pt has removed all monitoring attachments and refusing to allow staff to reapply; iv intact; increased visual observation for pt safety; call light within reach; will continue to monitor
--- NOTE | 2017-11-06 12:26 | NUR ---
pt allowed this financial underwriter to reapply cardiac exercise specialist; afib 90s on monitor; call light within reach; will continue to monitor
--- NOTE | 2017-11-06 12:42 | NUR ---
Erika called this documentation writer; admits to arriving in [facility]/approx. picker tender helper time [id number]; discharge instructions reviewed on phone as well as changes/new medications; prescriptions faxed to [facility] as per request; pt dressed and awaiting picker tender helper
--- NOTE | 2017-11-06 13:50 | NUR ---
discharge instructions reviewed with daughter Erika in detail; Erika admits to already picking up new prescriptions;
--- NOTE | 2017-11-06 13:52 | NUR ---
Discharge instructions given. Patient verbalizes understanding of same. Discharged in stable condition via [facility] with family. All belongings sent with pt.
== END 2017-11-06 13:52 | DRG 309 ==
LOC: ED 09:16 → ED-I 11:39 → ED 12:11 → ICU 12:12
PROVIDERS: Family Medicine; Hospitalist; Nurse Practitioner Family; ADMIT Internal Medicine; ATTEND Internal Medicine
DX: I48.91 Unspecified atrial fibrillation (principal); N39.0 Urinary tract infection, site not specified; F03.91 Unspecified dementia, unspecified severity, with behavioral disturbance; I11.0 Hypertensive heart disease with heart failure; I50.9 Heart failure, unspecified; E86.0 Dehydration; Z78.1 Physical restraint status; I25.5 Ischemic cardiomyopathy; I25.10 Atherosclerotic heart disease of native coronary artery without angina pectoris; E78.5 Hyperlipidemia, unspecified; F32.9 Major depressive disorder, single episode, unspecified; R47.1 Dysarthria and anarthria; K59.00 Constipation, unspecified; B96.20 Unspecified Escherichia coli [E. coli] as the cause of diseases classified elsewhere; Z66 Do not resuscitate; Z86.73 Personal history of transient ischemic attack (TIA), and cerebral infarction without residual deficits; Z85.3 Personal history of malignant neoplasm of breast; Z87.891 Personal history of nicotine dependence
CPT/HCPCS: J2060

== ENCOUNTER 2017-12-23 13:56 | Emergency (ER) | payer MEDICARE, OTHER ==
[~2017-12-23] VITALS: Ht 170.2 cm; Wt 71.0 kg
[~2017-12-23 13:56] MED LIST changes: +ASPIRIN EC325 MG PO; +ATIVAN0.5 MG PO; +CARDIZEM CD120 M1 PO; +LASIX20 MG PO; +LEXAPRO10 MG PO; +SEROQUEL25 MG PO
[2017-12-23 14:59] LABS: HEMATOCRIT 44.5 % (37.0-47.0); IMMATURE GRANULOCYTES 0.2 % (0.0-1.0); MEAN CORPUSCULAR HGB 29.2 pG CALC (26.0-32.0); MEAN CORPUSCULAR HGB CONC 32.6 g/L CALC (32.0-36.0); NEUT# 4.15 thou/uL (2.00-7.15); RED BLOOD COUNT 4.97 mill/uL (4.20-5.60); RED CELL DISTRI WIDTH 13.9 % (11.5-15.5)
[2017-12-23 15:00] LABS: HEMOGLOBIN 14.5 g/dl (12.0-16.0); MEAN CELL VOLUME 89.5 fL CALC (80.0-100.0)
[2017-12-23 15:14] LABS: ALBUMIN 3.8 g/dL (3.2-5.0); ALKALINE PHOSPHATASE 90 u/l (38-126); ANION GAP 16 (6-22 (CALC)); BILIRUBIN, TOTAL 0.7 mg/dL (0.0-1.4); BUN 22 mg/dL (8-23); BUN/CREATININE RATIO 22 (12-20 (CALC)); CARBON DIOXIDE 25 mmol/l (22-30); CHLORIDE 104 mmol/l (95-108); GFR 52 ML/MIN (>=60 (CALC)); GFR FOR AFR.AMER. > 60 ML/MIN (>=60 (CALC)); POTASSIUM 3.8 mmol/l (3.5-5.1); SGOT/AST 34 u/l (9-36); SGPT/ALT 34 u/l (11-66); SODIUM 141 mmol/l (137-146); TOTAL PROTEIN 7.7 g/dL (6.3-8.2)
[2017-12-23 15:26] LABS: MYOGLOBIN 30 ng/mL (0 - 62)
[2017-12-23 18:25] VITALS: BP 131/77
== END 2017-12-23 18:25 | disposition home or self-care (01) ==
LOC: ED 13:56 → ED-I 15:08 → ED 18:25
PROVIDERS: Emergency Medicine
DX: I48.91 Unspecified atrial fibrillation (principal); R41.82 Altered mental status, unspecified; Z95.0 Presence of cardiac pacemaker; I10 Essential (primary) hypertension; F03.90 Unspecified dementia, unspecified severity, without behavioral disturbance, psychotic disturbance, mood disturbance, and anxiety; R50.9 Fever, unspecified; Z91.14 Patient's other noncompliance with medication regimen
CPT/HCPCS: J1650

== ENCOUNTER 2017-12-24 12:08 | Inpatient (IN) | payer MEDICARE, OTHER ==
[~2017-12-24] VITALS: Ht 170.2 cm; Wt 66.6 kg
[2017-12-24 12:45] LABS: HEMATOCRIT 44.5 % (37.0-47.0); HEMOGLOBIN 14.4 g/dl (12.0-16.0); MEAN CELL VOLUME 89.9 fL CALC (80.0-100.0); MEAN CORPUSCULAR HGB 29.1 pG CALC (26.0-32.0); MEAN CORPUSCULAR HGB CONC 32.4 g/L CALC (32.0-36.0); NEUT# 6.04 thou/uL (2.00-7.15); RED BLOOD COUNT 4.95 mill/uL (4.20-5.60); RED CELL DISTRI WIDTH 14.1 % (11.5-15.5)
[2017-12-24 12:58] LABS: ALBUMIN 3.9 g/dL (3.2-5.0); BILIRUBIN, TOTAL 0.7 mg/dL (0.0-1.4); CREATININE 1.1 mg/dL (0.5-1.0); POTASSIUM 3.9 mmol/l (3.5-5.1); TOTAL PROTEIN 7.7 g/dL (6.3-8.2)
[2017-12-24 14:17] LABS: URINE BILIRUBIN - DIPSTICK NEGATIVE (NEGATIVE); URINE BLOOD DIPSTICK NEGATIVE (NEGATIVE); URINE CLARITY CLEAR; URINE COLOR YELLOW; URINE GLUCOSE - DIPSTICK NEGATIVE (NEGATIVE); URINE KETONE NEGATIVE (NEGATIVE); URINE LEUK ESTERASE NEGATIVE (NEGATIVE); URINE NITRITE - DIPSTICK NEGATIVE (Negative); URINE PH 5.5 (4.5-8.0); URINE PROTEIN - DIPSTICK NEGATIVE (NEG-TRACE); URINE SPECIFIC GRAVITY 1.025
[2017-12-24 16:10] LABS: ETHYL ALCOHOL 0 mg/dl (0-30)
[2017-12-24 18:26] VITALS: BP 141/86
[2017-12-25 06:44] VITALS: BP 112/62
[2017-12-25 08:58] LABS: HEMATOCRIT 42.5 % (37.0-47.0); HEMOGLOBIN 13.8 g/dl (12.0-16.0); IMMATURE GRANULOCYTES 0.3 % (0.0-1.0); MEAN CELL VOLUME 90.2 fL CALC (80.0-100.0); MEAN CORPUSCULAR HGB 29.3 pG CALC (26.0-32.0); MEAN CORPUSCULAR HGB CONC 32.5 g/L CALC (32.0-36.0); NEUT# 4.36 thou/uL (2.00-7.15); RED BLOOD COUNT 4.71 mill/uL (4.20-5.60); RED CELL DISTRI WIDTH 14.1 % (11.5-15.5)
[2017-12-25 09:15] LABS: ANION GAP 15 (6-22 (CALC)); BUN 17 mg/dL (8-23); BUN/CREATININE RATIO 17 (12-20 (CALC)); CARBON DIOXIDE 25 mmol/l (22-30); CHLORIDE 104 mmol/l (95-108); GFR 52 ML/MIN (>=60 (CALC)); GFR FOR AFR.AMER. > 60 ML/MIN (>=60 (CALC)); POTASSIUM 3.7 mmol/l (3.5-5.1); SODIUM 140 mmol/l (137-146)
[2017-12-25 09:25] VITALS: BP 119/81
[2017-12-25 16:30] VITALS: BP 126/62
[2017-12-25 19:30] VITALS: BP 140/92
[2017-12-26 04:00] VITALS: BP 127/86
[2017-12-26 05:08] LABS: HEMATOCRIT 42.1 % (37.0-47.0); HEMOGLOBIN 13.6 g/dl (12.0-16.0); IMMATURE GRANULOCYTES 0.3 % (0.0-1.0); MEAN CELL VOLUME 90.5 fL CALC (80.0-100.0); MEAN CORPUSCULAR HGB 29.2 pG CALC (26.0-32.0); MEAN CORPUSCULAR HGB CONC 32.3 g/L CALC (32.0-36.0); NEUT# 5.36 thou/uL (2.00-7.15); RED BLOOD COUNT 4.65 mill/uL (4.20-5.60); RED CELL DISTRI WIDTH 14.3 % (11.5-15.5)
[2017-12-26 05:19] LABS: ANION GAP 15 (6-22 (CALC)); BUN 19 mg/dL (8-23); BUN/CREATININE RATIO 20 (12-20 (CALC)); CARBON DIOXIDE 26 mmol/l (22-30); CHLORIDE 104 mmol/l (95-108); CREATININE 0.9 mg/dL (0.5-1.0); GFR 59 ML/MIN (>=60 (CALC)); GFR FOR AFR.AMER. > 60 ML/MIN (>=60 (CALC)); MAGNESIUM 2.2 mg/dL (1.6-2.3); SODIUM 140 mmol/l (137-146)
[2017-12-26 05:27] LABS: PROTHROMBIN TIME 11.4 SECONDS (9.0-12.5)
[2017-12-26 07:44] VITALS: BP 110/73
[2017-12-26 15:57] VITALS: BP 116/72
[2017-12-26 19:46] VITALS: BP 115/66
[2017-12-26 22:00] VITALS: BP 101/64
[2017-12-27 04:34] VITALS: BP 114/64
[2017-12-27 07:30] VITALS: BP 117/79
[2017-12-27 09:13] LABS: HEMOGLOBIN 13.8 g/dl (12.0-16.0); IMMATURE GRANULOCYTES 0.1 % (0.0-1.0); MEAN CELL VOLUME 91.3 fL CALC (80.0-100.0); MEAN CORPUSCULAR HGB 29.3 pG CALC (26.0-32.0); MEAN CORPUSCULAR HGB CONC 32.1 g/L CALC (32.0-36.0); NEUT# 5.14 thou/uL (2.00-7.15); RED BLOOD COUNT 4.71 mill/uL (4.20-5.60); RED CELL DISTRI WIDTH 14.5 % (11.5-15.5)
[2017-12-27 10:04] LABS: URINE BLOOD DIPSTICK NEGATIVE (NEGATIVE); URINE GLUCOSE - DIPSTICK NEGATIVE (NEGATIVE); URINE KETONE NEGATIVE (NEGATIVE); URINE LEUK ESTERASE SMALL (Negative); URINE NITRITE - DIPSTICK NEGATIVE (Negative); URINE PH 5.5 (4.5-8.0); URINE PROTEIN - DIPSTICK TRACE mg/dL (NEG-TRACE)
[2017-12-27 10:07] LABS: URINE BILIRUBIN - DIPSTICK SMALL (NEGATIVE)
[2017-12-27 10:08] LABS: URINE CLARITY HAZY; URINE COLOR DK. YELLOW
[2017-12-27 10:09] LABS: URINE BACTERIA FEW hpf; URINE EPITHELIAL CELLS MODERATE EPI/hpf (0-FEW)
[2017-12-27] MEDS ORDERED: KEFLEX500 M1 PO (12:06)
[2017-12-27] MEDS ORDERED: CEPHALEXIN500 MG PO (12:10)
[2017-12-27 16:30] VITALS: BP 120/80
[2017-12-28 03:49] VITALS: BP 114/74
[2017-12-28 09:26] VITALS: BP 104/59
[2017-12-28 09:28] VITALS: BP 104/59
== END 2017-12-28 16:55 | DRG 884 ==
LOC: ED 12:08 → ED-I 16:40 → ED 17:25 → MS2 17:26
PROVIDERS: Emergency Medicine; Nurse Practitioner; Nurse Practitioner Family; ADMIT Internal Medicine; ATTEND Internal Medicine
DX: F03.91 Unspecified dementia, unspecified severity, with behavioral disturbance (principal); I48.91 Unspecified atrial fibrillation; N18.3 Chronic kidney disease, stage 3 (moderate); N39.0 Urinary tract infection, site not specified; I25.5 Ischemic cardiomyopathy; I25.10 Atherosclerotic heart disease of native coronary artery without angina pectoris; I12.9 Hypertensive chronic kidney disease with stage 1 through stage 4 chronic kidney disease, or unspecified chronic kidney disease; E78.5 Hyperlipidemia, unspecified; R47.02 Dysphasia; F32.9 Major depressive disorder, single episode, unspecified; Z85.3 Personal history of malignant neoplasm of breast; Z86.73 Personal history of transient ischemic attack (TIA), and cerebral infarction without residual deficits; Z87.891 Personal history of nicotine dependence; Z95.0 Presence of cardiac pacemaker; Z91.81 History of falling